=== PATIENT | male | born 1955 | race Caucasian/White ===

== ENCOUNTER → 2018-11-11 | Outpatient (CLI) | payer OTHER | LOC: SUPIMAGING 10:48 → MERGE 10:48 | PROVIDERS: ATTEND Family Medicine | DX: L03.031 Cellulitis of right toe (principal); S91.209A Unspecified open wound of unspecified toe(s) with damage to nail, initial encounter | CPT/HCPCS: 73660-PN ==

== ENCOUNTER → 2019-01-04 | Outpatient (CLI) | payer OTHER | LOC: SUPIMAGING 10:06 | PROVIDERS: ATTEND Family Medicine | DX: Z89.421 Acquired absence of other right toe(s) (principal) | CPT/HCPCS: 73620-PN ==

== ENCOUNTER → 2019-02-08 | Outpatient (CLI) | payer OTHER | LOC: SUPIMAGING 16:45 | PROVIDERS: ATTEND Family Medicine | DX: M79.674 Pain in right toe(s) (principal); L03.90 Cellulitis, unspecified | CPT/HCPCS: 73660-PN ==

== ENCOUNTER 2019-02-14 18:03 | Inpatient (IN) | payer OTHER ==
--- NOTE | 2019-02-14 19:46 | EDPHY ---
General - History Smoking Status: Current every day smoker Time Seen by Provider: 02/14/19 18:29 Narrative: CLINICAL IMPRESSION: Open dislocation, right 2nd toe at PIP joint associated with right toe cellulitis, probable MRSA, possible early osteomyelitis ASSESSMENT/PLAN: 63-year-old male with past medical history of COPD, CHF, MRSA, morbid obesity, presents to the emergency department with a worsening open wound to the right 2nd toe after injuring the toe a couple weeks ago. Patient with recent amputation of the right 3rd toe secondary to osteomyelitis. No reported history of diabetes. He does however have chronic peripheral neuropathy. X- ray show a probable chronic PIP joint dislocation although this appears to have become open over the course of the last couple weeks with losing and discharge from the wound and visible bone. There is swelling to the dorsum of the toes and MTP joints of the 1st and 2nd toes. No leukocytosis, normal lactate, vital stable, afebrile. No radiologic findings to suggest osteomyelitis although I am concerned about patient's risk of developing this. In addition, patient's wound continued to worsen despite being on an outpatient course of clindamycin following amputation less than 3 months ago. Patient will be admitted to the hospitalist service, I discussed with Dr. Dave who will plan to take the patient to the operating room tomorrow for amputation of the right 2nd toe. He was seen by Dr. Mcbride as well. Stable in the ED at time of admission. DIFFERENTIAL DX: Differential includes but not limited to cellulitis, MRSA, osteomyelitis, open dislocation ED PROCEDURES: See lab and/or imaging results below ED COURSE: X-rays reviewed with Dr. Faust. Patient appears to have a dislocated PIP joint. CHIEF COMPLAINT: Right 2nd toe pain HPI: 63-year-old morbidly obese male with past medical history of COPD, CHF, MRSA, presents to the emergency department with at least 1 week of right great toe pain associated with open wound. Patient reports approximately 3 months ago he underwent amputation of his right 3rd toe by Dr. Powers secondary to osteomyelitis. This was performed at [facility]. He reports having a positive culture for MRSA, was given vancomycin in the hospital and discharged on Bactrim. He unfortunately had a severe reaction to Bactrim describing hallucinations and paranoia. He was then switched to clindamycin. He reports approximately a week ago he "stubbed his right 2nd toe " and his reports that looked like "a rug burn on the toe. He continue taking clindamycin. He has been seeing wound care at his house and his primary care who has been "scrubbing the toe". He never had x-rays of the toe. He states despite this the appearance of the toe has progressively gotten worse. He has been completely off his feet for the last 4 days. He states he is just not feeling well, described low energy and nausea. No reported fevers but his reports he has been chilled. He reports no history of diabetes. He reports he is chronically a sensate to both of his feet and attributes this to bilateral arterial thrombus requiring stents. He reports he now has pain extending into the dorsum of the foot near the 2nd toe. PAST MEDICAL HISTORY: CHF, morbid obesity, COPD, history of arterial thromboses, history of MRSA See nurse/triage notes for additional history if applicable Pertinent Past Surgical History: Amputation of right 3rd toe 3 months ago secondary to osteomyelitis Family History: Noncontributory Social History: , here with his REVIEW OF SYSTEMS: All other systems negative Constitutional: No fever, positive for chills, appetite change. Cardiovascular: No chest pain, no palpitations. Respiratory: No cough, no shortness of breath. Gastrointestinal: No abdominal pain, positive for nausea, no vomiting, diarrhea. Musculoskeletal: No back pain, positive joint swelling, positive for joint pain , myalgias. Skin: No rashes, positive for color change to the right 2nd toe Neurological: No headache, dizziness, weakness. PHYSICAL EXAM: General Appearance: Alert, oriented, appropriate, morbidly obese cooperative, NAD, well hydrated, non-toxic appearing, VSS, 89-90% on room air. Respiratory: There are no retractions, lungs are clear to auscultation. Cardiac: Regular rate and rhythm, no murmurs or gallops. Gastrointestinal: Abdomen is soft, nontender, bowel sounds normal, no masses/ hernia, no rigidity, guarding or focal peritoneal findings. Neurological: [ Alert and oriented x 3. Very little sensation to both feet Skin: Ulcerative, open, oozing wound to the dorsum of the right 2nd toe over the PIP joint with visible bone present. Musculoskeletal: [Recent amputation of right 3rd toe. Normal range of motion of remaining toes right foot. See skin findings above. Pain to palpation of the MCP joint of the right 2nd toe. Psychiatric: Patient is oriented X 3 MEDICAL DECISION MAKING: Secondary supervising physician at time of evaluation was Dr. Mcbride, who also saw and examined the patient. Diagnosis: Open dislocation PIP joint of right 2nd toe associated with cellulitis and possible early osteomyelitis . New, requires workup Summary: See Assessment and Plan for summary of ED visit Clinical lab tests: ordered / reviewed. Independent visualization of images, tracing, or specimens: Yes. Decision to obtain medical records or history from someone other than the patient: Patient's white Discussed patient with another provider: Dr. Mcbride, Dr. Dave, Dr. Bethea, Dr. Felipe Patient Progress: Stable for admission. (Ashok Abreu) Medical Decision Making: I did evaluate this patient myself. He appears to have open dislocation of several months. Obvious infection. Attempt was made reduction however because of contractures it is immediately dislocated again. I recommended admission and likely amputation. (Alexander Mcbride) - Objective Vital Signs: Initial Vital Signs Temperature (C) 36.8 C 02/14/19 18:07 Heart Rate 71 02/14/19 18:07 Respiratory Rate 16 02/14/19 18:07 Blood Pressure 122/86 H 02/14/19 18:07 O2 Sat (%) 89 L 02/14/19 18:07 O2 Delivery Mode Nasal Cannula O2 (L/minute) 2 Allergies/Adverse Reactions: bacitracin [From Triple Antibiotic] Allergy (Verified 02/14/19 18:11) neomycin [From Triple Antibiotic] Allergy (Verified 02/14/19 18:11) Penicillins Allergy (Verified 02/14/19 18:11) polymyxin B [From Triple Antibiotic] Allergy (Verified 02/14/19 18:11) sulfamethoxazole [From Bactrim] Allergy (Verified 02/14/19 21:20) trimethoprim [From Bactrim] Allergy (Verified 02/14/19 21:20) Home Medications: Medication Instructions Recorded Albuterol Sulfate [Proair Hfa] 1 - 2 puffs IH Q4-6PRN PRN 02/14/19 Atorvastatin Calcium [Lipitor 20 20 mg PO HS 02/14/19 mg (*)] Carvedilol 12.5 mg PO BID 02/14/19 FLUoxetine HCL [Fluoxetine HCl] 40 mg PO BID 02/14/19 Fluticasone/Salmeter 500/50Mcg 1 puffs IH BID 02/14/19 [Advair 500/50 (*)] Furosemide [Lasix 40 MG (*)] 40 mg PO DAILY@11 02/14/19 Furosemide [Lasix 40 MG (*)] 80 mg PO DAILY@0530 02/14/19 Hydrocodone/Acetaminophen 1 each PO Q4HRS PRN 02/14/19 [Hydrocodon-Acetaminophn 10-325] Levothyroxine [Synthroid 50 mcg 50 mcg PO DAILY06 02/14/19 (*)] Pregabalin [Lyrica 150mg (*)] 150 mg PO BID 02/14/19 Rivaroxaban [Xarelto] 20 mg PO DAILY 02/14/19 Tamsulosin HCl [Flomax 0.4 MG (*)] 0.4 mg PO HS 02/14/19 rOPINIRole HCL [Ropinirole HCl] 3 mg PO HS 02/14/19 Laboratory Results: Laboratory Results 02/14/19 19:30 02/14/19 19:30 Microbiology Results: MICROBIOLOGY 02/14/19 19:30 Toe - Anaerobic Tube/Swab Gram Stain - Final Medications Given: Hydrocodone Bitart/Acetaminophen ([place] 5/325) 1 - 2 tab PO Q4HRS PRN PRN Reason: Pain, Moderate Able to Take PO Stop: 02/24/19 22:47 Last Admin: 02/14/19 23:06 Dose: 2 tab Albuterol (Proventil Neb) 3 ml IH Q2HRS PRN PRN Reason: Short of Breath/Dyspnea Stop: 08/14/19 03:16 Last Admin: 02/15/19 09:25 Dose: 3 ml Carvedilol (Coreg) 12.5 mg PO BID [facility] Stop: 08/14/19 08:59 Last Admin: 02/15/19 12:00 Dose: 12.5 mg Fluoxetine HCl (Prozac) 40 mg PO BID [facility] Stop: 08/14/19 08:59 Last Admin: 02/15/19 11:59 Dose: 40 mg Furosemide (Lasix) 40 mg PO DAILY@11 [facility] Stop: 08/14/19 10:59 Last Admin: 02/15/19 12:00 Dose: 40 mg Furosemide (Lasix) 80 mg PO DAILY@0530 [facility] Stop: 08/14/19 05:29 Last Admin: 02/15/19 06:11 Dose: Not Given Vancomycin HCl 1.25 gm/ Sodium (Chloride) 250 mls @ 166.667 mls/hr IV Q8HRS [facility] Stop: 03/17/19 05:59 Last Admin: 02/15/19 13:16 Dose: 250 mls Levothyroxine Sodium (Synthroid) 50 mcg PO DAILY06 [facility] Stop: 08/14/19 05:59 Last Admin: 02/15/19 06:11 Dose: Not Given Morphine Sulfate (Morphine) 1 - 2 mg IVP Q2HRS PRN PRN Reason: Pain, Severe Unable to Take PO Stop: 02/24/19 22:47 Last Admin: 02/15/19 02:27 Dose: 2 mg Pregabalin (Lyrica) 150 mg PO BID [facility] Stop: 08/14/19 01:29 Last Admin: 02/15/19 12:00 Dose: 150 mg Ropinirole HCl (Requip) 3 mg PO HS [facility] Stop: 08/14/19 01:44 Last Admin: 02/15/19 01:48 Dose: 3 mg Fluticasone/Salmeterol (Advair) 1 puffs IH BID [facility] Stop: 08/14/19 08:59 Last Admin: 02/15/19 10:06 Dose: Not Given Tamsulosin HCl (Flomax) 0.4 mg PO HS [facility] Stop: 08/14/19 01:29 Last Admin: 02/15/19 01:49 Dose: 0.4 mg Discontinued Medications Bupivacaine HCl (Sensorcaine 0.5% Vial) Confirm Administered Dose 30 ml .ROUTE .STK-MED ONE Stop: 02/15/19 08:35 Last Admin: 02/15/19 10:25 Dose: 20 ml Vancomycin HCl 1.5 gm/ Sodium (Chloride) 250 mls @ 166.667 mls/hr IV EDNOW ONE Stop: 02/14/19 23:14 Last Admin: 02/14/19 21:32 Dose: 250 mls Sodium Chloride (Ns) 1,000 mls @ 75 mls/hr IV CONT [facility] Stop: 08/13/19 22:59 Last Admin: 02/14/19 23:06 Dose: 1,000 mls Lactated Ringer's (Lr) 1,000 mls @ 0 mls/hr IV ONCE ONE PRN Reason: Per Protocol Stop: 02/15/19 08:52 Last Admin: 02/15/19 09:25 Dose: 1,000 mls Departure - Departure Disposition: [facility] Inpatient Acute Condition: Fair
[2019-02-14 20:00] LABS: PLATELET COUNT 359 10^3/uL (150-400)
[2019-02-14] MEDS ORDERED: VANCOMYCIN HCL/NORMAL SALINE 250 ML IV ONE (21:03)
[2019-02-14] MEDS ORDERED: VANCOMYCIN 1.5 GM in NS 250 ML IV ONE (21:45)
[2019-02-14] MEDS ORDERED: ONDANSETRON 4 MG/2 ML VIAL IVP PRN (22:48)
[2019-02-14] MEDS ORDERED: HYDROCODONE/APAP 5/325 TAB PO PRN (22:48)
[2019-02-14] MEDS ORDERED: ONDANSETRON DISINTEGRATING 4 MG TAB PO PRN (22:48)
[2019-02-14] MEDS ORDERED: ACETAMINOPHEN 325 MG TAB PO PRN (22:48)
[2019-02-14] MEDS ORDERED: NS 1,000 ML IV SCH (23:00)
[2019-02-15] MEDS: TAMSULOSIN HCL 0.4 MG CAP PO SCH ×2 (01:49→20:32)
[2019-02-15] MEDS: PREGABALIN 150 MG CAP PO SCH ×3 (01:49→20:32)
[2019-02-15] MEDS ORDERED: ALBUTEROL 3 ML DEYVIAL IH PRN ×2 (03:17→09:55)
--- NOTE | 2019-02-15 04:44 | GHP ---
[f rep st] HISTORY AND PHYSICAL DATE OF ADMISSION: 02/14/2019 SOURCE: Patient provides history, appears reliable. EMR was reviewed and case discussed with ED provider. CHIEF COMPLAINT: Right foot and toe pain. HISTORY OF PRESENT ILLNESS: This is a very pleasant 63-year-old gentleman with a past medical history significant for COPD; CHF; history of MRSA infected 3rd right toe wound, status post amputation; peripheral neuropathy; peripheral arterial disease, status post bilateral lower extremity bypasses; morbid obesity with BMI of 46; who presents to the emergency department today with complaints of right 2nd toe pain and open wound. Patient reports that this has been going on for greater than a month. He reports that he stubbed his toe and injured it, hitting the top of his toe, causing a slight abrasion. Patient notes that he has peripheral neuropathy and did not observe any worsening until recently except his socks have been wet. His home health care nurse evaluated his postoperative wound from amputation the right foot several months ago and noted that he had significant worsening in the right toe wound, which also appeared to have bone exposure. She recommended that the patient go to the emergency department for evaluation. Patient states over the weekend that he had been experiencing some fevers and chills subjectively, but no nausea or vomiting, chest pain, shortness of breath worse than baseline. REVIEW OF SYSTEMS: Ten systems reviewed, negative except as noted above. ALLERGIES: To penicillin, neomycin, polymyxin, bacitracin. HOME MEDICATIONS: Please see EMR for updated list, but briefly what is available: Fluoxetine, levothyroxine, atorvastatin, tamsulosin, furosemide twice daily, ProAir, carvedilol, [place], Advair, ropinirole, Lyrica, Xarelto. PAST MEDICAL HISTORY: Significant for COPD, with oxygen use at h.s.; peripheral neuropathy; CHF; MRSA; [place] not intolerant of CPAP; MRSA osteomyelitis in the right 3rd toe, status post a recent amputation; history of arterial thrombosis, status post bilateral lower extremity bypasses; morbid obesity with BMI of 46.9. PAST SURGICAL HISTORY: Significant for amputation of 3rd right toe, lower extremity arterial bypass as noted above. FAMILY HISTORY: Father with COPD. Grandmother with diabetes. SOCIAL HISTORY: Patient is , lives with his of greater than 30 years. He has 6 grandchildren. He does continue to smoke tobacco, recently started a year ago, 1.5 packs per week. He denies any alcohol use. He does smoke marijuana on a regular basis. CODE STATUS: Full. PHYSICAL EXAMINATION: VITAL SIGNS: Upon arrival to the emergency department: Blood pressure is 122/86, heart rate is 71, respiratory rate 16, O2 sat 89% on room air, with a temperature of 36.8. Current vitals available: Blood pressure is 134/89; heart rate is 73; respiratory rate 20. O2 sat: Last O2 sat 82% on room air, improved to 94% on 2 L. Temperature 36.6. GENERAL: No acute distress. Pleasant, morbidly obese gentleman who is lying comfortably in bed. He is awake, pleasant, and cooperative. HEAD: Normocephalic, atraumatic. EYES: Extraocular muscles are grossly intact. Pupils equal, round , symmetric. No scleral icterus or conjunctival injection. ENT: Mucous membranes appear moist. No oropharyngeal erythema. No nasal discharge. NECK: Supple. CV: Slightly distant heart sounds due to body habitus with regular rate and rhythm. Unable to appreciate any murmurs, rubs, or gallops. RESPIRATORY: Diminished bilaterally. No wheezes or rhonchi appreciated. ABDOMEN: Obese, soft, nontender to palpation. No rebound, guarding, or masses. Positive bowel sounds. : No suprapubic tenderness to palpation. No Ernner catheter in place. EXTREMITIES: Patient with chronic lower extremity skin changes. He has 1+ pedal pulses bilaterally. No lower extremity edema. SKIN: Chronic skin changes, lower extremities and above. Patient's right foot is bandaged. He has a slow healing surgical incision at the site of the 3rd toe. The 2nd toe has an approximately 1 cm circular wound over the PIP that is tender to palpation and had bone exposure. There is no purulent or serosanguineous drainage. NEURO: Grossly nonfocal. Patient does have sensation intact in the lower extremities, slightly diminished. Moves all extremities otherwise. PSYCH: Thought process, content, questions appropriate. Patient is pleasant and cooperative. LABORATORY STUDIES: WBC 8.29, H and H are 15.4 and 46.0, MCV of 88.8, platelet count 359, no bands. Lactic acid 1.3. Sodium is 135, potassium is 4.2, chloride 98, CO2 is 26, anion gap 11, BUN is 17, creatinine 0.9, GFR of greater than 60, glucose 110, calcium 9.1. Wound culture obtained from the emergency department on that toe is pending. Gram stain showing 1+ polymorphonuclear white cells, 2+ gram-positive cocci, and 1 gram-negative jack. IMAGING DATA: Foot x-ray, image report reviewed. Negative for any acute osseous erosion or fracture involving the right 2nd toe, equivocal dislocation at the level of PIP versus abnormal positioning in the foot. Amputated right 3rd toe, pronounced degenerative changes, loss of joint space in the 1st metatarsophalangeal articulation. ASSESSMENT AND PLAN: Pleasant 63-year-old gentleman with history of chronic obstructive pulmonary disease, congestive heart failure, methicillin-resistant Staphylococcus aureus, and a recent amputation in the last several months of the 3rd right toe for osteomyelitis, who sustained a mechanical injury to his right 2nd toe, now presents with complaints of worsening wound and drainage. 1. Right 2nd toe infection suspicious for osteomyelitis as there is exposure of bone, dislocation of the joint. Patient has been started on vancomycin for a history of methicillin-resistant Staphylococcus aureus previously. He has been made NPO. Dr. Dave with Orthopedics was consulted from the emergency department and will plan to evaluate and anticipate amputation of the 2nd great toe. Patient had some hesitations and concerns regarding additional amputation. We discussed with the patient that due to the injury and likelihood for osteomyelitis, he would be at increased risk for progressive infection and additional amputations. Patient without any objections with proceeding in surgery, but is just a little anxious as he just recently had an amputation. 2. Chronic medical issues: a. Chronic obstructive pulmonary disease without exacerbation. Some diminished lung sounds. Continue patient's Advair and albuterol as needed. b. History of congestive heart failure, not otherwise specified. Monitor patient's fluid status closely. Hold off on morning Lasix as patient will be nothing by mouth overnight. Saline lock is intravenously. c. Peripheral neuropathy. Continue Lyrica. d. Restless legs syndrome. Continue ropinirole. e. History of peripheral arterial disease, status post lower extremity bypass. Patient has been on Xarelto, which will be held. f. Morbid obesity. Mobilize postoperatively as tolerated. 3. Fluid, electrolyte, nutrition. Saline lock intravenously. Electrolytes adequate. Nothing by mouth after midnight. 4. Code status. Full. 5. Prophylaxis. Holding anticoagulation. No sequential compression devices in setting of history of peripheral arterial disease and current wound infection. 6. Disposition. Patient admitted to observation status on the med/surg floor pending additional evaluation and treatment by Dr. Dave tomorrow. /[id number]/MODL MTDD
[2019-02-15] MEDS: VANCOMYCIN 1.25 GM in NS 250 ML IV SCH ×3 (06:08→22:14)
[2019-02-15] MEDS: LEVOTHYROXINE 50 MCG TAB PO SCH (06:11)
[2019-02-15] MEDS: FUROSEMIDE 40 MG TAB PO SCH ×2 (06:11→12:00)
[2019-02-15 06:49] LABS: PLATELET COUNT 316 10^3/uL (150-400)
[2019-02-15] MEDS ORDERED: BUPIVACAINE 0.5% 30 ML SDV ONE (08:34)
--- NOTE | 2019-02-15 08:39 | GCON ---
[f rep st] CONSULTATION DATE OF CONSULTATION: 02/15/2019 REASON FOR CONSULTATION: Right 2nd toe traumatic wound. HISTORY OF PRESENT ILLNESS: 63-year-old man with multiple comorbidities, who presented to the emergency room complaining of right 2nd toe pain and open wound. He reports that he caught his toe in the bathroom, which led to a traumatic wound. This was over 1 month ago. He also had the same problem with his right 3rd toe which subsequently developed MRSA infection and required amputation 3 months ago. Of note, the right 3rd amputation site has not yet healed. He denies much pain in the area and has peripheral neuropathy. He has minimal drainage from the wounds. Over the weekend, he developed fevers and chills which ultimately led to presentation in the emergency room. He had a foot x-ray performed on 02/14/19, which showed no definite acute osseous erosion or fracture of the right 2nd toe, no evidence of osteomyelitis. 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 PAST SURGICAL HISTORY: Amputation, right 3rd toe; bilateral lower extremity fem -pop bypass, left in 2000, right in 2017. FAMILY HISTORY: Significant for father with COPD, grandmother with diabetes, son with DVT and PE. SOCIAL HISTORY: He is , has 6 grandchildren. He is a current smoker x40 years, currently smoking 1-1/2 packs per week. He denies alcohol use. He does use marijuana recreationally. REVIEW OF SYSTEMS: 10-point review of systems negative aside from the HPI. PHYSICAL EXAM: GENERAL: Obese man in no acute distress. HEENT: Normocephalic, atraumatic. No hearing deficits. Pupils equal and round. No scleral icterus. Mucous membranes moist. NECK: Trachea midline. RESPIRATORY: No increased work of breathing. CARDIOVASCULAR: 1+ peripheral edema, right lower extremity. No peripheral edema of left lower extremity Dopplerable. PT and DP pulses bilaterally. SKIN: The right 2nd toe has a wound at the interphalangeal joint with disarticulation and necrotic tendon in the base of the wound. There is minimal surrounding erythema. The area is nontender to palpation. He is status post right 3rd toe amputation with open wound at the amputation site. He has evidence of venous stasis. He has hemosiderin deposition bilaterally with varicose veins, well-healed bilateral lower extremity arterial bypass scars. The location of the open wound is the proximal interphalangeal joint with some tenderness to palpation. No purulence or active drainage. NEURO: Grossly intact. PSYCH: Mood and affect normal. IMPRESSION AND PLAN: 63-year-old man with multiple comorbidities and right 2nd toe open wound with disarticulation. We discussed right 2nd toe amputation for bone exposure and open dislocation. He is on therapeutic antibiotics. We discussed risks of surgery, including but not limited to heart attack, stroke, blood clots, or . We discussed risk of infection, bleeding, delayed wound healing, or need for additional procedures. He understands the risks and would like to proceed. He is on the schedule with Dr. Washington for 9:30 this morning for surgery. Consent form signed and in his chart. He had all of his questions answered to his satisfaction. Patient is a current smoker with peripheral arterial disease as well as history of DVTs - he understands that he has many barriers to healing, and smoking cessation was encouraged. Would be a good idea to re-image his LEs during this hospital admission with CTA to ensure patency of bypasses. Patient additionally seen by Dr. Melissa Washington. I saw and examined the patient. I reviewed his x ray. On his exam he has an open fracture dislocation and will require amputation. Multiple barriers to optimal healing including tobacco use, morbid obesity and blood supply /[id number]/MODL MTDD
[2019-02-15] MEDS ORDERED: LR 1,000 ML IV ONE (08:51)
[2019-02-15] MEDS ORDERED: PROPOFOL 200 MG/20 ML VIAL ONE ×2 (09:35→09:36)
[2019-02-15] MEDS ORDERED: METOCLOPRAMIDE 10 MG/2 ML VIAL ONE (09:38)
[2019-02-15] MEDS ORDERED: ONDANSETRON 4 MG/2 ML VIAL ONE (09:38)
[2019-02-15] MEDS ORDERED: LIDOCAINE 2% 5 ML SDV ONE (09:44)
[2019-02-15] MEDS ORDERED: KETAMINE 200 MG/20 ML VIAL ONE (09:45)
[2019-02-15] MEDS ORDERED: HYDROmorphONE/DILAUDID 1 MG/ML INJ IVP PRN (09:55)
[2019-02-15] MEDS ORDERED: oxyCODONE IR 5 MG TAB PO PRN (09:55)
[2019-02-15] MEDS ORDERED: ONDANSETRON 4 MG/2 ML VIAL IVP PRN (09:55)
[2019-02-15] MEDS ORDERED: NALOXONE HCL 0.4 MG/ML INJ IVP PRN (09:55)
[2019-02-15] MEDS ORDERED: PROMETHAZINE HCL 25 MG/ML INJ IVP PRN (09:55)
[2019-02-15] MEDS: FLUTICASONE/SALMETER 500/50MCG DISKUS IH SCH ×2 (10:06→20:29)
--- NOTE | 2019-02-15 10:22 | PDANEPAE ---
ANE History of Present Illness R toe Amputation ANE Past Medical History - Cardiovascular History Hx Hypertension: Yes Hx Chest Pain: Yes Hx Coronary Artery / Peripheral Vascular Disease: Yes Hx CHF / Valvular Disease: Yes - Pulmonary History Hx COPD: Yes Hx Asthma/Reactive Airway Disease: Yes Hx Oxygen in Use at Home: Yes O2 in Use at Home (L/minute): 2 L Hx Sleep Apnea: Yes Sleep Apnea Screening Result - Last Documented: Positive - Endocrine History Hx Diabetes: No Obesity: severe ANE Review of Systems Review of Systems: ANE Patient History - Allergies Allergies/Adverse Reactions: bacitracin [From Triple Antibiotic] Allergy (Verified 02/14/19 18:11) neomycin [From Triple Antibiotic] Allergy (Verified 02/14/19 18:11) Penicillins Allergy (Verified 02/14/19 18:11) polymyxin B [From Triple Antibiotic] Allergy (Verified 02/14/19 18:11) sulfamethoxazole [From Bactrim] Allergy (Verified 02/14/19 21:20) trimethoprim [From Bactrim] Allergy (Verified 02/14/19 21:20) - Home Medications Home Medications: Albuterol Sulfate [Proair Hfa] 1 - 2 puffs IH Q4-6PRN PRN 02/14/19 [Last Taken Unknown] Atorvastatin Calcium [Lipitor 20 mg (*)] 20 mg PO HS 02/14/19 [Last Taken ] Carvedilol 12.5 mg PO BID 02/14/19 [Last Taken 02/14/19] FLUoxetine HCL [Fluoxetine HCl] 40 mg PO BID 02/14/19 [Last Taken 02/14/19] Fluticasone/Salmeter 500/50Mcg [Advair 500/50 (*)] 1 puffs IH BID 02/14/19 [ Last Taken 02/14/19] Furosemide [Lasix 40 MG (*)] 40 mg PO DAILY@11 02/14/19 [Last Taken 02/14/19] Furosemide [Lasix 40 MG (*)] 80 mg PO DAILY@0530 02/14/19 [Last Taken 02/14/19] Hydrocodone/Acetaminophen [Hydrocodon-Acetaminophn 10-325] 1 each PO Q4HRS PRN 02/14/19 [Last Taken 02/14/19] Levothyroxine [Synthroid 50 mcg (*)] 50 mcg PO DAILY06 02/14/19 [Last Taken 04/28] Pregabalin [Lyrica 150mg (*)] 150 mg PO BID 02/14/19 [Last Taken 02/14/19] Rivaroxaban [Xarelto] 20 mg PO DAILY 02/14/19 [Last Taken 02/14/19] Tamsulosin HCl [Flomax 0.4 MG (*)] 0.4 mg PO HS 02/14/19 [Last Taken 02/13/19] rOPINIRole HCL [Ropinirole HCl] 3 mg PO HS 02/14/19 [Last Taken 02/13/19] - NPO status NPO Since - Liquids (Date): 02/15/19 NPO Since - Liquids (Time): 00:00 NPO Since - Solids (Date): 02/15/19 NPO Since - Solids (Time): 00:00 - Smoking Hx Smoking Status: Current every day smoker ANE Labs/Vital Signs - Labs Result Diagrams: 02/15/19 05:07 02/15/19 05:07 - Vital Signs Blood Pressure: 103/65 Heart Rate: 71 Respiratory Rate: 20 O2 Sat (%): 91 Height: 180.34 cm Weight: 152.4 kg ANE Physical Exam - Airway Neck exam: FROM, increased neck circumference, short neck Mallampati Score: Class 2 Mouth exam: small mouth opening - Pulmonary Pulmonary: expiratory wheeze - Cardiovascular Cardiovascular: regular rate and rhythym - ASA Status ASA Status: III ANE Anesthesia Plan Anesthesia Plan: GA w LMA
--- NOTE | 2019-02-15 11:35 | POSTANESTH ---
Post Anesthetic Evaluation Cardiovascular Status: Normal, Stable Respiratory Status: Normal, Stable Level of Consciousness/Mental Status: Can Participate in Eval Pain Control: Adequate, Prn Tx Ordered Nausea/Vomiting Control: Adequate, Prn Tx Ordered
[2019-02-15] MEDS: FLUoxetine 20 MG CAP PO SCH ×2 (11:59→20:32)
[2019-02-15] MEDS: CARVEDILOL 25 MG TAB PO SCH ×2 (12:00→20:30)
--- NOTE | 2019-02-15 13:33 | HOSPPROG ---
Hospitalist Progress Note Assessment/Plan: 63y male with toe infection. #Toe infection -to OR for amputation -ID consult #COPD -follow #Pain -try oxy #PAD -follow #HX CHF -stable #Morbid obesity #Dispo -unclear Subjective: Still having pain after surgery. Objective: Vital Signs Temp Pulse Resp BP Pulse Ox 36.7 C 72 22 H 112/69 96 02/15/19 12:38 02/15/19 12:38 02/15/19 12:38 02/15/19 12:38 02/15/19 12:38 Laboratory Results 02/15/19 05:07 02/15/19 05:07 02/14/19 02/15/19 02/16/19 05:59 05:59 05:59 Intake Total 55 740 Output Total 25 Balance 55 715 - Physical Exam Constitutional: chronically ill appearing, obese Eyes: PERRL, anicteric sclera Ears, Nose, Mouth, Throat: moist mucous membranes, hearing normal Cardiovascular: No JVD, No edema Respiratory: no respiratory distress Gastrointestinal: No distension Skin: warm Musculoskeletal: muscular tenderness, generalized weakness Psychiatric: not anxious ICD10 Worksheet Patient Problems: Problems Problem Status Onset Toe infection Acute - ICD10 Problem Qualifiers (1) Toe infection
[2019-02-15] MEDS: oxyCODONE IR 5 MG TAB PO PRN ×3 (13:52→22:14)
--- NOTE | 2019-02-15 14:59 | ASMTCMCOM ---
CM Note CM Note Notes: Pt admitted to hospital for toe infection, he has a hx of toe amputation. Pt was taken to OR for another amputation and had a wound vac placed. Pt and state he has a home health RN through [facility], CM called and they say he hasn't been seen since May. CM left a vm, KENNETH w/contiue to follow. No therapies ordered DC Plan:TBD Date Signed: 02/15/2019 02:58 PM Electronically Signed By:Maryam Marin RN
--- NOTE | 2019-02-15 19:17 | GCON ---
[f rep st] CONSULTATION INFECTIOUS DISEASE CONSULTATION DATE OF CONSULTATION: 02/15/2019 REFERRING PHYSICIAN: Lorenza Waddell MD REASON FOR CONSULTATION: Right foot infection with history of MRSA. HISTORY OF PRESENT ILLNESS: The patient is a 63-year-old male with a past medical history of COPD, p eripheral neuropathy, and peripheral vascular disease, whom I am asked to see in consultation for a r ight second toe infection. The patient developed an MRSA infection of the right third toe approximat raven 3 months ago, which required amputation at [facility]. The patient has had difficul ty with the amputation site healing. The patient describes receiving a course of Bactrim with which "He felt like he was on acid," ultimately resulting in a fall. During the course of the fall, he scr aped the skin on the dorsal surface of the second toe. This subsequently progressed to a necrotic wo und, with open dislocation being present. He describes having redness developed over the toe and nitin darlyn aspect of the foot. Review of outpatient record shows receipt of both doxycycline and clindamyci n. The patient was seen by his home health nurse with findings showing exposed bone prompting recomm endation for evaluation in the emergency department. He does describe having some chills, but no fev ers. He does feel like the dorsal aspect of his foot was edematous with erythema. Plain films of th e foot did not show changes of osteomyelitis, but showed evidence of a dislocation at the PIP joint w ith an overlying open wound. Earlier today, he was taken for amputation of the second toe. This was reviewed with Surgical Service and no notation of significant cellulitis being present. The patient has been treated empirically with vancomycin. Given the above findings, I am now asked to assist in his ongoing management. PAST MEDICAL HISTORY: COPD, peripheral neuropathy, peripheral vascular disease, congestive heart ariana lure, MRSA skin and soft tissue infection of the third toe requiring amputation, obstructive sleep ap crisetl, recurrent DVT with hypercoagulable state, and morbid obesity. PAST SURGICAL HISTORY: Amputation of right third toe as outlined above, amputation of right second t oe today; bilateral lower extremity arterial bypass surgery; he describes that his right-sided bypass surgery was complicated by a staph infection requiring 8 weeks of antibiotic therapy under the super [facility] of [facility]. He did not require prolonged suppressive antibiotic therapy. CURRENT MEDICATIONS: Vancomycin 1.25 g IV q.8 h., Advair 1 puff twice daily, Flomax 0.4 mg p.o. at b edtime, Requip 3 mg p.o. at bedtime, Lyrica 150 mg p.o. twice daily, Synthroid 50 mcg p.o. daily, Las ix 80 mg p.o. q.a.m. and 40 mg p.o. q.p.m., Prozac 40 mg p.o. twice daily, Coreg 12.5 mg p.o. twice d aily, and Lipitor 20 mg p.o. at bedtime. ALLERGIES: Sulfonamides associated with psychosis, penicillin associated with hives, but has tolerat ed cephalosporins. SOCIAL HISTORY: The patient continues to smoke 2 packs per week. No alcohol or drug use. FAMILY HISTORY: Son with hypercoagulable state. REVIEW OF SYSTEMS: Outside that noted in the HPI, remainder of a 10-system review is unremarkable ex cept for peripheral neuropathy. PHYSICAL EXAMINATION: VITAL SIGNS: Temperature 36.3, heart rate 68, respiratory rate 18, blood pres sure 113/68, and oxygen saturation 94% on 3 L. GENERAL: The patient is morbidly obese in no acute d istress. He appears nontoxic. HEENT: There is no scleral icterus, conjunctival injection, or conju nctival petechiae. Oropharynx shows moist mucous membranes. No nasal discharge. NECK: Supple with out palpable lymphadenopathy or thyromegaly. CHEST: Clear to auscultation bilaterally without adven titious sounds other than occasional expiratory wheeze. Respiratory effort is normal. CARDIOVASCULA R: Regular rate and rhythm without murmurs, gallops, or rubs. ABDOMEN: Obese, nontender, and nondi stended. Assessment of organomegaly precluded by obesity. MUSCULOSKELETAL: Right foot has a wound VAC in place. There is no surrounding cellulitis. There is 2+ lower extremity edema bilaterally. S KIN: There is mild intertrigo in the inguinal regions bilaterally. There are changes of venous kia is dermatitis in the right lower extremity with hemosiderin deposition. NEUROLOGIC: The patient is alert and interacts appropriately with the examiner. Cranial nerves 2 through 12 are grossly intact. Sensation is decreased in the lower extremities. Muscle tone and bulk are normal. LYMPHATICS: No cervical or supraclavicular nodes. No right-sided lymphangitis in the thigh. LABORATORY DATA: White blood cell count 7.9, hematocrit 43.3, platelets 316, and neutrophils 74%. S stephie creatinine is 0.8. Venous lactate 1.3. Gram stain of the patient's ulceration shows 1+ white b lood cells, 2+ GPCs, and 1+ gram-negative rods with growth of mixed cutaneous stacey. Operative Gram stain shows no white blood cells and no organisms. Vancomycin trough is pending for later this eveni ng. IMPRESSION: Right second toe nonhealing ulceration with exposed bone, status post amputation: Abdi ntly, there are no findings of skin and soft tissue infection, although presence of wound vacuum-assi sted closure device limits full examination. Suspect we will be able to utilize a short duration of vancomycin with possible discontinuation tomorrow as amputation should be curative. He has a vancomy agnes trough pending for later this evening as he is receiving greater than 3 g per 24 hours based on h is body habitus. Do not anticipate that the patient will need prolonged antibiotic therapy post ampu tation. RECOMMENDATIONS: 1. Continue vancomycin with repeat assessment tomorrow and probable discontinuation of antibiotic th erapy at that point in time. 2. Followup cultures as available. 3. Local wound care under supervision of Surgery. 4. Counseled the patient regarding importance of smoking cessation as this will impair wound healing and contribute to ongoing peripheral arterial disease. Thank you for this consultation. We will continue to follow the patient with you. /[id number]/MODL
--- NOTE | 2019-02-15 20:12 | GOP ---
[f rep st] OPERATIVE REPORT DATE OF OPERATION: 02/15/2019 SURGEON: Melissa Washington MD ANESTHESIA: General. ANESTHESIOLOGIST: Dr. Kyaw Lovelace. PREOPERATIVE DIAGNOSIS: Right 2nd toe wound with bone and tendon exposed. POSTOPERATIVE DIAGNOSIS: Right 2nd toe wound with bone and tendon exposed. PROCEDURE PERFORMED: 1. Amputation, right 2nd toe. 2. Debridement of surgical site, right 3rd toe. 3. Placement of Prevena wound VAC. FINDINGS: Bone and tendon exposed through wound of obvious dislocated toe. SPECIMENS: Right toe for pathology. Right metatarsal head ink medley proximal. Right toe for microbiology. ESTIMATED BLOOD LOSS: 10 cc. INDICATIONS: The patient is a 63-year-old who underwent amputation of the 3rd toe with delayed wound healing and developed a wound on the second toe with dislocation and bone and tendon exposed. DESCRIPTION OF PROCEDURE: Patient was brought into the operating room, placed supine on the table, and anesthesia was administered. His foot was prepped and draped in the usual sterile fashion. I infiltrated the area with 0.5% Marcaine prior to making incisions. I made an incision around the base of the toe extending onto the dorsum of the foot. I removed the second toe with a microsagittal saw and submitted this to Pathology. I used a periosteal elevator to elevate the soft tissues away from the bone. I took the remaining portion of the second toe and submitted this to Microbiology. I exposed the metatarsal head and amputated the distal portion of the second metatarsal head. This was inked proximally, and submitted to Pathology. Hemostasis was achieved in the wound. The deep layer was closed with 3-0 Vicryl, skin closed with 2-0 nylon. I then debrided the base of the wound of the 3rd toe to healthy bleeding granulation tissue. I then closed this with 2-0 nylon. I placed a Prevena wound VAC over the 2 incisions. He was awakened in the operating room, transferred to PACU in stable condition. /[id number]/MODL MTDD
[2019-02-15] MEDS: ATORVASTATIN CALCIUM 20 MG TAB PO SCH (20:33)
--- NOTE | 2019-02-15 22:27 | GCON ---
[f rep st] CONSULTATION DATE OF CONSULTATION: 02/15/2019 REASON FOR CONSULTATION: Right 2nd toe. HISTORY OF PRESENT ILLNESS: The patient is a 63-year-old with a history of multiple medical problems , who has increasing 2nd toe pain and swelling. He had recently undergone a 3rd toe amputation on his opposite foot. PHYSICAL EXAMINATION: He has some diffuse swelling in his foot. The 2nd toe is flexed at the IP join t and extended at the MP joint. There is skin breakdown at the dorsal aspect of the IP joint. There i s clinical evidence of infection. ASSESSMENT: Right 2nd toe infection. PLAN: Based on the appearance of the toe and the poor likelihood of wound healing capability, it was recommended that 2nd toe amputation be pursued. This was scheduled for amputation. /[id number]/MODL
[2019-02-16] MEDS: oxyCODONE IR 5 MG TAB PO PRN ×5 (02:15→20:27)
[2019-02-16] MEDS: VANCOMYCIN 1.25 GM in NS 250 ML IV SCH (06:13)
[2019-02-16] MEDS: FUROSEMIDE 40 MG TAB PO SCH ×2 (06:13→10:47)
[2019-02-16] MEDS: LEVOTHYROXINE 50 MCG TAB PO SCH (06:14)
[2019-02-16] MEDS: FLUoxetine 20 MG CAP PO SCH ×2 (08:13→20:27)
[2019-02-16] MEDS: PREGABALIN 150 MG CAP PO SCH ×2 (08:13→20:27)
[2019-02-16] MEDS: CARVEDILOL 25 MG TAB PO SCH ×2 (08:13→20:26)
[2019-02-16] MEDS: FLUTICASONE/SALMETER 500/50MCG DISKUS IH SCH ×2 (08:35→20:25)
--- NOTE | 2019-02-16 09:02 | SOAPPROG ---
SOAP Progress Note Assessment/Plan: Assessment: POD # 1 s/p amputation R second toe and debridement 3rd toe Prevena wound vac. Remove when battery dies or at 1 week - whichever comes sooner. The wound is closed under the incisional wound vac Smoking cessation Walking cast shoe or cam boot walker - may ambulate but not prolonged F/U Dr. Washington in 1 week Path and micro pending DC when medically ready S: Pain at foot O: Pleasant, sitting in chair, appears well Prevena to suction - noisy (likely due to difficult seal between toes) No erythema Plan: 02/16/19 08:59 Objective: Vital Signs Temp Pulse Resp BP Pulse Ox 36.5 C 74 18 118/73 93 02/16/19 07:36 02/16/19 08:36 02/16/19 08:36 02/16/19 07:36 02/16/19 08:36 Microbiology 02/15/19 10:05 Gram Stain - Final Other - Other Laboratory Results 02/15/19 05:07 02/16/19 04:40 02/15/19 02/16/19 02/17/19 05:59 05:59 05:59 Intake Total 55 1989 Output Total 0127 400 Balance 55 65 -400 ICD10 Worksheet Patient Problems: Problems Problem Status Onset Toe infection Acute
--- NOTE | 2019-02-16 12:05 | HOSPPROG ---
Hospitalist Progress Note Assessment/Plan: Patient is a 63-year-old male patient with a history of COPD, CHF, MRSA and recent amputation of his 3rd right toe for osteomyelitis. He sustained a mechanical injury to his right 2nd toe. He presented with complaints of worsening wound and drainage. Today is my 1st encounter. Chart reviewed. * right 2nd toe infection -status post amputation -has been on vancomycin, this will be likely discontinued since the toe infection has been removed -wound VAC * COPD -continue Advair and albuterol as needed * history of CHF * peripheral neuropathy -on Lyrica * restless leg syndrome -on ropinirole * history of peripheral artery disease status post lower extremity bypass -Xarelto (will resume when ok w surgery) * morbid obesity with a BMI of 46 *plan: likely dc in the next day or so w wound vac and home care. Subjective: Chandrakant is having some pain to his right foot area. Objective: Vital Signs Temp Pulse Resp BP Pulse Ox 36.5 C 74 18 118/73 93 02/16/19 07:36 02/16/19 08:36 02/16/19 08:36 02/16/19 07:36 02/16/19 08:36 Microbiology 02/15/19 10:05 Gram Stain - Final Other - Other Laboratory Results 02/15/19 05:07 02/16/19 04:40 02/15/19 02/16/19 02/17/19 05:59 05:59 05:59 Intake Total 55 1989 Output Total 6983 400 Balance 55 65 -400 - Physical Exam Constitutional: chronically ill appearing, obese, uncomfortable Eyes: PERRL Ears, Nose, Mouth, Throat: hearing normal Cardiovascular: regular rate and rhythym, other (distant heart tones) Respiratory: no respiratory distress, reduced air movement Skin: warm, other (wound vac in place on r foot) Neurologic: AAOx3 Psychiatric: interacting appropriately, not anxious ICD10 Worksheet Patient Problems: Problems Problem Status Onset Toe infection Acute
--- NOTE | 2019-02-16 14:06 | PCMIDPN ---
Assessment/Plan: Assessment/Plan: * Right 2nd toe infection with open dislocation status post amputation: Surgical findings reviewed with Dr. Washington with no findings of skin and soft tissue infection over foot at time of amputation. Amputation should be curative without need for ongoing antibiotic therapy. Will therefore discontinue vancomycin observe off antibiotics. Discussed with patient that antibiotics will not improve wound healing in the absence of ongoing infection. Wound healing will be critical to prevent recurrent infection and failure to heal wound could lead to limb threatening process/infection. * Intertrigo: Start nystatin powder. 02/16/19 14:03 Subjective: Patient without specific complaints. Operative findings reviewed with Dr. Washington today. Objective: Vital Signs Temp Pulse Resp BP Pulse Ox 36.8 C 72 18 106/73 94 02/16/19 13:16 02/16/19 13:16 02/16/19 13:16 02/16/19 13:16 02/16/19 13:16 Microbiology 02/15/19 10:05 Gram Stain - Final Other - Other Laboratory Results 02/15/19 05:07 02/16/19 04:40 02/15/19 02/16/19 02/17/19 05:59 05:59 05:59 Intake Total 55 1989 Output Total 1925 650 Balance 55 65 -650 Wound and operative culture both with growth of Staphylococcus aureus Laboratory Tests 02/15/19 21:35 Vancomycin Trough 15.0 - Physical Exam General Appearance: alert, no apparent distress Extremities: inflammation (Right foot with wound VAC in place; no cellulitis present outside VAC margins) Abdomen: non-tender, No distended Skin: rash (Mild intertrigo bilateral inguinal region) ICD10 Worksheet Patient Problems: Problems Problem Status Onset Toe infection Acute
[2019-02-16] MEDS: NYSTATIN POWDER 15 GM BTL TP SCH ×2 (16:09→20:24)
--- NOTE | 2019-02-16 18:28 | PDMN ---
Medical Necessity Medical necessity: Change to inpt as of 02/16/19, meets inpt criteria per MD order and [facility], Foot: Surgical Wound Care, A-2 days, Surgery performed is expected to require inpatient level of nursing, monitoring, treatment, or wound care beyond 24 hours postoperatively. 63 y/o w/hx COPD (uses home O2), periph neuropathy, CHF, MRSA, tobacco use, and morbid obesity admitted w/R 2nd toe infection suspicious for osteomyelitis w/exposure of bone and tendon and dislocation of joint. Surgical and ortho consults, pt underwent amputation of R 2nd toe, debridement, and wound vac placement. ID consult today, est LOS>2MN for ongoing eval/management of above.
[2019-02-16] MEDS: ATORVASTATIN CALCIUM 20 MG TAB PO SCH (20:27)
[2019-02-16] MEDS: TAMSULOSIN HCL 0.4 MG CAP PO SCH (20:27)
[2019-02-17] MEDS: oxyCODONE IR 5 MG TAB PO PRN ×6 (01:26→22:49)
[2019-02-17] MEDS: LEVOTHYROXINE 50 MCG TAB PO SCH (05:29)
[2019-02-17] MEDS: FUROSEMIDE 40 MG TAB PO SCH ×2 (05:29→10:57)
[2019-02-17] MEDS: FLUTICASONE/SALMETER 500/50MCG DISKUS IH SCH ×2 (09:32→20:51)
[2019-02-17] MEDS: FLUoxetine 20 MG CAP PO SCH ×2 (09:38→22:35)
[2019-02-17] MEDS: CARVEDILOL 25 MG TAB PO SCH ×2 (09:39→22:34)
[2019-02-17] MEDS: PREGABALIN 150 MG CAP PO SCH ×2 (09:40→22:34)
--- NOTE | 2019-02-17 10:12 | HOSPPROG ---
Hospitalist Progress Note Assessment/Plan: Patient is a 63-year-old male patient with a history of COPD, CHF, MRSA and recent amputation of his 3rd right toe for osteomyelitis. He sustained a mechanical injury to his right 2nd toe. He presented with complaints of worsening wound and drainage. * right 2nd toe infection -status post amputation -has been on vancomycin -wound VAC * COPD -continue Advair and albuterol as needed * history of CHF -on Lasix * peripheral neuropathy -on Lyrica * restless leg syndrome -on ropinirole * history of peripheral artery disease status post lower extremity bypass -Xarelto (will resume) * morbid obesity with a BMI of 46 *plan: likely dc soon w wound vac Subjective: Chandrakant is having pain to his right big toe- onoging for years. Objective: Vital Signs Temp Pulse Resp BP Pulse Ox 36.9 C 75 16 113/66 95 02/17/19 08:43 02/17/19 09:32 02/17/19 09:32 02/17/19 08:43 02/17/19 09:32 02/16/19 02/17/19 02/18/19 05:59 05:59 05:59 Intake Total 1800 Output Total 1400 500 Balance 400 -500 - Physical Exam Constitutional: appears nourished, chronically ill appearing, obese, uncomfortable Eyes: PERRL Ears, Nose, Mouth, Throat: hearing normal Respiratory: no respiratory distress, reduced air movement (due to his obesity) Skin: warm Musculoskeletal: generalized weakness Neurologic: AAOx3 Psychiatric: interacting appropriately ICD10 Worksheet Patient Problems: Problems Problem Status Onset Toe infection Acute
--- NOTE | 2019-02-17 10:27 | PDIAF ---
- Diagnosis Diagnosis: right second toe infection s/p amputation, morbid obestiy, PVD, PAD Code Status: Full Code - Medication Management Discharge Medications: electronically signed and located in the Home Medication List. - Orders Services needed: Home Care, Registered Nurse Home Care Face to Face: I certify that this patient was under my care and that I had the required [id number] encounter meeting the encounter requirements on the discharge day. My findings support the fact that the patient is homebound as defined in Home Care Face to Face Continued: CMS Chapter 7 Medicare Benefits Manual 30.1.1 , The condition of the patient is such that there exists a normal inability to leave home and consequently, leaving home would require a considerable and taxing effort. Isolation Type: Contact Isolation Diet Recommendation: no restrictions on diet Diet Texture: Regular Texture Diet Additional Instructions: Do not immerse foot in water or shower as long as incisional wound dressing is in place Remove dressing if no longer holding suction, battery dies or on 02/21 ( whichever comes first). This is a fancy bandaid. Everything is disposable and can go in regular trash. After removal can place antibiotic ointment like neosporin and gauze and tape over wound Walking and weight bearing okay but no prolonged distances make a follow up with Dr. Washington or her PA Stephanie Sandoval for 02/20 or 02/21 A prescription for Oxy IR was sent to the pharmacy here in the hospital-they will bring you your medications. Do not take [place] in addition try Scheduled Tylenol 1000 mg tid scheduled to help with your pain A home care nurse will see you - Follow Up Care Current Providers and Referrals: Dora Newberry DO [Primary Care Provider] - As per Instructions Melissa Washington MD [Medical Doctor] - (call to make an appointment. We would like to see you either 02/20 or 02/21)
--- NOTE | 2019-02-17 10:34 | ASMTCMCOM ---
CM Note CM Note Notes: Pt being discharged to home today with [facility] RN services. Has disposable wound vac in place. Per Stephanie Sandoval PA-C with Dr. Washington, okay to go home with it on. He will follow up with Dr. Washington in her office. Pt's will be driving him home. LM for her to advise that he is being discharged today. Date Signed: 02/17/2019 10:33 AM Electronically Signed By:Ute Park
--- NOTE | 2019-02-17 10:35 | ASMTLACE ---
LACE Length of stay for Answers: 1 day current admission Acuity / Level of Answers: Yes Care: Did the patient have an inpatient admission? Comorbidities - select Answers: Chronic pulmonary disease all that apply Congestive heart failure Other Notes: Hx of MRSA; Peripheral neuropathy # of Emergency department Answers: 1-2 visits in the last 6 months Score: 10 Date Signed: 02/17/2019 10:34 AM Electronically Signed By:Ute Park
--- NOTE | 2019-02-17 10:52 | GDS ---
[f rep st] DISCHARGE SUMMARY DISCHARGE DIAGNOSIS: 1. Right 2nd toe infection, status post amputation. 2. Chronic obstructive pulmonary disease. 3. History of congestive heart failure. 4. Peripheral neuropathy. 5. Restless leg syndrome. 6. History of peripheral artery disease, status post lower extremity bypass. 7. Morbid obesity with a body mass index of 46. CONSULTATION: Stephanie Sandoval, [facility], with surgical team, Dr. Faust, Dr. Dave. HISTORY AND HOSPITAL COURSE: Briefly, this patient is a 63-year-old male with a past medical history significant for COPD, CHF, history of MRSA infection of his 3rd right toe status post amputation, pe ripheral neuropathy, peripheral artery disease, morbid obesity with a body mass index of 46, presente d to the ER with complaints of right 2nd toe pain and open wound. This has been ongoing for greater than a month. There was concern for osteomyelitis. He was seen and evaluated by Dr. Faust and Dr. Peters. The recommendation was for amputation, which has been since removed. He will be discharged ho md with home care following up. HOSPITAL COURSE: 1. Right 2nd toe infection, status post amputation, was treated with vancomycin. He will be on a wo und VAC. 2. COPD. Continue Advair and albuterol as needed. 3. History of CHF, on Lasix. 4. Peripheral neuropathy, on Lyrica. 5. Restless leg syndrome on ropinirole. 6. History of PAD status post lower extremity bypass, resumed his Xarelto. 7. Morbid obesity. He has a BMI of 46. DISCHARGE CONDITION: Stable. Blood pressure is 113/66, O2 sats on 3 L are 95%. Heart rate is 75, r espiratory rate of 16, temperature 36.9. MEDICATION AT DISCHARGE: Please see the EMR. DISCHARGE INSTRUCTIONS: 1. Do not immerse his foot in water or shower as long as incisional wound dressing is in place. He will have a wound VAC. Once it looses it suction or the battery dies, he can dispose and go in the r egular trash. He can walk and weight bear as tolerated, but no prolonged distances. 2. Follow up with Dr. Washington or Stephanie Sandoval, [facility]. 3. A prescription for Oxy IR was sent to the pharmacy here in the hospital. Do not take the [place] i n addition to this. Greater than 30 minutes discharging and coordinating care. Copy requested to: Dr. Felix Faust /[id number]/MODL
[2019-02-17] MEDS: ACETAMINOPHEN 500 MG TAB PO SCH ×3 (10:56→22:33)
[2019-02-17] MEDS: NYSTATIN POWDER 15 GM BTL TP SCH ×2 (10:58→22:38)
[2019-02-17] MEDS: RIVAROXABAN 20 MG TAB PO SCH (11:39)
--- NOTE | 2019-02-17 12:39 | ASMTCMCOM ---
CM Note CM Note Notes: UPDATE TO PREVIOUS CM NOTE: Dr. Washington does not want pt to go home today. She says he has not gotten out of bed once since being here and is not an active participant in his wound care. CM notified . Also notified [facility] that he is not being discharged today afterall. CM will continue to follow. CM D/C plan: Eventually home with HC Date Signed: 02/17/2019 12:38 PM Electronically Signed By:Ute Park
--- NOTE | 2019-02-17 13:23 | SOAPPROG ---
SOAP Progress Note Assessment/Plan: Assessment/Plan: 63yo M with multiple comorbidities POD#2 s/p amputation R 2nd toe Prevena incisional wound vac not functioning well - removed and replaced with silver mepilex Ambulate with post-op shoe PT/OT SANDRA this morning decreased flow to RLE. Will order CTA with runoff Pain controlled Additionally seen by Dr. Washington S: patient has not gotten up out of bed since yesterday - cast shoe still in package. Has not worked with PT. Pain of R 4th and 5th toes improved since dressing removed O: laying in bed, NAD, obese No increased WOB B feet warm to the touch RLE amp site with small amount of dusky tissues, incisions CDI. No erythema. Objective: Vital Signs Temp Pulse Resp BP Pulse Ox 36.8 C 72 16 109/65 92 02/17/19 11:33 02/17/19 11:33 02/17/19 11:33 02/17/19 11:33 02/17/19 11:33 02/16/19 02/17/19 02/18/19 05:59 05:59 05:59 Intake Total 1800 Output Total 1400 900 Balance 400 -900 ICD10 Worksheet Patient Problems: Problems Problem Status Onset Toe infection Acute
--- NOTE | 2019-02-17 13:53 | PCMIDPN ---
Assessment/Plan: Assessment: 63-year-old man with right 2nd toe cellulitis with underlying osteomyelitis, amputation provided source control will continue to monitor off antibiotics. 1. Right 2nd toe cellulitis with possible underlying osteomyelitis, resolved with amputation 2. Status post right 2nd toe amputation on 02/15/2019 3. Peripheral neuropathy 4. Morbid obesity Plan: 1. Continue to monitor off antibiotics 2. Wound care as an outpatient Infectious Diseases remains available should the need arise Darci Feng MD Infectious Diseases 02/17/19 13:55 Subjective: No fever or chills in the past 24-hours. Tolerating oral diet with solids and liquids. No diarrhea, nausea, or other GI symptoms. No rash. Appetite improving. Amputation site at right 2nd toe remains painful but tolerable. Improved since admission but not back to baseline health. Objective: Vital Signs Temp Pulse Resp BP Pulse Ox 36.8 C 72 16 109/65 92 02/17/19 11:33 02/17/19 11:33 02/17/19 11:33 02/17/19 11:33 02/17/19 11:33 02/16/19 02/17/19 02/18/19 05:59 05:59 05:59 Intake Total 1800 Output Total 1400 1100 Balance 400 -1100 Discussed treatment/diagnostic testing and testing results with admitting provider(s). Personally reviewed interval laboratory results. - Physical Exam General Appearance: no apparent distress, non-toxic EENT: No scleral icterus Respiratory: No respiratory distress, No accessory muscle use Neck: full range of motion, supple Skin: other (Right foot with wound VAC in place over amputation site encompassing the 2nd toe area, no erythema surrounding wound VAC edges, no induration, no fluctuance areas) Neuro/Psych: alert, normal mood/affect, oriented x 3, No confused ICD10 Worksheet Patient Problems: Problems Problem Status Onset Toe infection Acute
[2019-02-17] MEDS ORDERED: IOPAMIDOL (ISOVUE 370) 100 ML BTL IV ONE (13:58)
--- NOTE | 2019-02-17 17:59 | SOAPPROG ---
SOAP Progress Note Assessment/Plan: Assessment: SANDRA .49 with poor wave form on right CTA with profunda reconstituting Discussed with dr العلي and patient. Will need new bypass as old bypass is out Had bypass on left in 2000 Had bypass on right more recently At risk of poor wound healing due to blood supply obesity smoking (recently quit) Walking better with cast shoe Plan: 02/16/19 08:59 02/17/19 17:57 Objective: Vital Signs Temp Pulse Resp BP Pulse Ox 36.8 C 79 16 116/86 H 92 02/17/19 11:33 02/17/19 15:59 02/17/19 15:59 02/17/19 15:59 02/17/19 15:59 02/16/19 02/17/19 02/18/19 05:59 05:59 05:59 Intake Total 1800 Output Total 1400 1350 Balance 400 -1350 ICD10 Worksheet Patient Problems: Problems Problem Status Onset Toe infection Acute
[2019-02-17] MEDS: ATORVASTATIN CALCIUM 20 MG TAB PO SCH (22:33)
[2019-02-17] MEDS: TAMSULOSIN HCL 0.4 MG CAP PO SCH (22:34)
[2019-02-18] MEDS: FUROSEMIDE 40 MG TAB PO SCH ×2 (05:03→12:39)
[2019-02-18] MEDS: LEVOTHYROXINE 50 MCG TAB PO SCH (05:03)
[2019-02-18] MEDS: ACETAMINOPHEN 500 MG TAB PO SCH (05:55)
--- NOTE | 2019-02-18 08:55 | SOAPPROG ---
SOAP Progress Note Assessment/Plan: Assessment: PATIENT SLEEPING IS SOLIDLY AND UNABLE TO AROUSE AFEBRILE CTA SHOWS OCCLUDED RIGHT SFA BUT OPEN DISTAL POPLITEAL ARTERY WOUNDS NOT EVALUATED YET TODAY Plan: CONSIDER EVALUATION FOR FEM-POP BYPASS FOR LIMB SALVAGE/I WILL DISCUSS THIS WITH HIM LATER WHEN HE IS MORE AWAKE 02/18/19 08:54 Objective: Vital Signs Temp Pulse Resp BP Pulse Ox 36.7 C 74 14 112/60 92 02/18/19 07:36 02/18/19 07:36 02/18/19 07:36 02/18/19 07:36 02/18/19 07:36 02/17/19 02/18/19 02/19/19 05:59 05:59 05:59 Intake Total 1800 650 Output Total 1400 2100 1500 Balance 400 -1450 -1500 ICD10 Worksheet Patient Problems: Problems Problem Status Onset Toe infection Acute
[2019-02-18] MEDS: FLUTICASONE/SALMETER 500/50MCG DISKUS IH SCH ×2 (09:10→20:49)
[2019-02-18] MEDS: PREGABALIN 150 MG CAP PO SCH ×2 (09:33→20:22)
[2019-02-18] MEDS: RIVAROXABAN 20 MG TAB PO SCH (09:33)
[2019-02-18] MEDS: FLUoxetine 20 MG CAP PO SCH ×2 (09:34→20:22)
[2019-02-18] MEDS: CARVEDILOL 25 MG TAB PO SCH ×2 (09:34→20:22)
[2019-02-18] MEDS: NYSTATIN POWDER 15 GM BTL TP SCH ×2 (09:35→21:39)
[2019-02-18] MEDS ORDERED: ACETAMINOPHEN 500 MG TAB PO PRN (11:08)
--- NOTE | 2019-02-18 14:32 | ASMTCMCOM ---
CM Note CM Note Notes: CM reviewed chart. Per Dr. Miles, he will discuss possibility of doing femoral-popliteal bypass to try to salvage pt's limb. Pt is on [facility]'s list for homecare when he discharges, if still appropriate at that time. CM will continue to follow. CM D/C plan: TBD Date Signed: 02/18/2019 02:32 PM Electronically Signed By:Ute Park
--- NOTE | 2019-02-18 15:09 | HOSPPROG ---
Hospitalist Progress Note Assessment/Plan: * MRSA Osteomyelitis of toe s/p amputation -no further antibiotics as surgical cure -wound care * PVD - d/w Dr. Miles - patient needs re-do of LE bypass surgery * Morbid obesity BMI 47 * Peripheral neuropathy -Lyrica * h/o arterial thrombosis -Xarelto * COPD with ongoing tobacco abuse -Advair -intermittent compliance with home O2 * MORENA - CPAP intolerant Subjective: no new complaints Objective: Vital Signs Temp Pulse Resp BP Pulse Ox 36.6 C 69 14 100/46 L 95 02/18/19 11:34 02/18/19 11:34 02/18/19 11:34 02/18/19 11:34 02/18/19 11:34 02/17/19 02/18/19 02/19/19 05:59 05:59 05:59 Intake Total 1800 650 Output Total 1400 2100 1500 Balance 400 -1450 -1500 CTA aorta with runoff reviewed - needs arterial revision case discussed with Dr. Villegas regarding need for OR Laboratory Tests 02/14/19 02/15/19 19:30 05:07 WBC 7.89 Hct 43.3 Plt Count 316 VBG Lactic Acid 1.3 - Physical Exam Constitutional: no apparent distress, appears nourished, not in pain Cardiovascular: regular rate and rhythym, no murmur, rub, or gallop Respiratory: no respiratory distress, no rales or rhonchi, clear to auscultation Gastrointestinal: normoactive bowel sounds, soft, non-tender abdomen, no palpable masses Skin: other (foot amputation bed kelsea, dry, undressed) Neurologic: AAOx3, sensation intact bilaterally Psychiatric: interacting appropriately, not anxious, not encephalopathic, thought process linear ICD10 Worksheet Patient Problems: Problems Problem Status Onset Toe infection Acute
[2019-02-18] MEDS: ATORVASTATIN CALCIUM 20 MG TAB PO SCH (20:22)
[2019-02-18] MEDS: TAMSULOSIN HCL 0.4 MG CAP PO SCH (20:22)
[2019-02-18] MEDS: oxyCODONE IR 5 MG TAB PO PRN (21:38)
[2019-02-19] MEDS: LEVOTHYROXINE 50 MCG TAB PO SCH (04:42)
[2019-02-19] MEDS: FUROSEMIDE 40 MG TAB PO SCH (04:43)
[2019-02-19] MEDS: PREGABALIN 150 MG CAP PO SCH ×2 (07:52→21:46)
[2019-02-19] MEDS: RIVAROXABAN 20 MG TAB PO SCH (07:52)
[2019-02-19] MEDS: FLUoxetine 20 MG CAP PO SCH ×2 (07:52→21:47)
[2019-02-19] MEDS: NYSTATIN POWDER 15 GM BTL TP SCH ×2 (07:59→21:51)
[2019-02-19] MEDS: FLUTICASONE/SALMETER 500/50MCG DISKUS IH SCH ×2 (08:57→21:39)
[2019-02-19] MEDS ORDERED: FUROSEMIDE 40 MG/4 ML VIAL IVP ONE (09:44)
[2019-02-19] MEDS: CARVEDILOL 25 MG TAB PO SCH ×2 (10:33→21:47)
--- NOTE | 2019-02-19 11:26 | ECHO ---
[email or web address] [address] [address] Main: [phone] Echocardiography Examination Transthoracic Name: GAIL RASCON MR#: [id number] Study Date: 02/19/2019 Study Time: 10:52 AM Date of : 1955 Age: 63 year(s) Height: 180.3 cm (71 in.) Weight: 151.96 kg (335 lb.) BSA: 2.63 m2 Gender: Male Examination: Echo Contrast: Image Quality: Technically Difficult Rhythm: Normal sinus rhythm Heart Rate: 68 bpm BP: 105 mmHg/59 mmHg Indication: CHF Procedure Staff Referring Physician: Forensics Team Director: Adali Parson RDCS Reading Physician: Greg Eagle MD Requesting Provider: Ordering Physician: Linda Darden Indication: CHF Measurements Chambers AV/MV Label Value Normal Value Label Value Normal Value LVOT Vmax 0.82 m/s (0.7m/s - 1.1m/s) AR Vena contracta 0.4 cm LVOTd 2.4 cm (1.9cm - 2.1cm) AV PGmax 10 mmHg LVDd, 2D 4.6 cm (4.2cm - 5.9cm) AV Vmax 1.59 m/s LVDs, 2D 3 cm (2.1cm - 4cm) MARK (Vmax) 2.3 cm2 IVSd, 2D 1 cm (0.6cm - 1.1cm) MV E Vmax 0.65 m/s LVPWd, 2D 1.2 cm (0.6cm - 1cm) MV A Vmax 0.74 m/s LVEF, 2D 58 % (54% - 74%) MV E/A 0.88 LADs, 2D 3.9 cm (3cm - 4cm) MV DT 201 ms Additional Vessels TV/PV Label Value Normal Value Label Value Normal Value AoAsc 3.3 cm PV PGmax 5 mmHg AoRoot, 2D 3.5 cm (1.4cm - 2.6cm) PV Vmax, Caliper 1.16 m/s (0.6m/s - 0.9m/s) Conclusions Left Ventricle: CONCLUSIONS:1)Technically limited echo secondary to body habitus.2)Normal LV size and systolic function with a LVEF of 58%.3)Borderline concentric LVH with mild diastolic dysfunction noted.4)Mild to moderate AI without noted.5)Mild TR noted. Unable to accurately assess PA pressures.6)Promient pericardial fat pad with no pericardial Patient: GAIL RASCON Study Date: 02/19/2019 Page 1 of 2 10:52 AM effusion or tamponade signs. Findings Left Ventricle: Left ventricle is normal in size. CONCLUSIONS: 1)Technically limited echo secondary to body habitus. 2)Normal LV size and systolic function with a LVEF of 58%. 3)Borderline concentric LVH with mild diastolic dysfunction noted. 4)Mild to moderate AI without noted. 5)Mild TR noted. Unable to accurately assess PA pressures. 6)Promient pericardial fat pad with no pericardial effusion or tamponade signs. EF evaluated by fractional shortening (2D). The LV wall thickness is at the upper limits of normal. Although no diagnostic regional wall motion abnormality was identified, this possibility cannot be completely excluded on the basis of this study. Grade I Diastolic Dysfunction. Borderline concentric LV hypertrophy. Right Ventricle: Grossly normal right ventricular size. The RV function appears grossly normal. Left Atrium: The left atrium is grossly normal. Right Atrium: Grossly normal right atrial size. Mitral Valve: Mitral valve is poorly visualized. No significant mitral regurgitation. No mitral valve stenosis. Aortic Valve: Aortic valve is poorly visualized. Mild to moderate aortic regurgitation is present. There is no aortic stenosis. Tricuspid Valve: Tricuspid valve is poorly visualized. Mild tricuspid regurgitation. No tricuspid valve stenosis. Pulmonary artery pressure cannot be assessed due to inadequate TR signal. Pulmonic Valve: Pulmonic valve is poorly visualized. Aorta: The aortic root size in 2D measures 3.5 cm. The aortic root exhibits normal size. The ascending aorta measures 3.3 cm. Aorta Measurements AoRoot, 2D is 3.5 cm. IVC: The inferior vena cava is normal in size and course. Pericardium: No pericardial effusion. prominent pericardial fat pad. Exam Details Procedure Ordered: Echo Procedure Status: Routine study Image Quality: Technically Difficult Facility Location: Cardiac Echo 1 (No Signature Object) Patient: GAIL RASCON Study Date: 02/19/2019 Page 2 of 2 10:52 AM [id number]
--- NOTE | 2019-02-19 13:13 | HOSPPROG ---
Hospitalist Progress Note Assessment/Plan: * MRSA Osteomyelitis of toe s/p amputation -no further antibiotics as surgical cure -wound care - unclear if wound vac to be replaced * PVD - patient needs re-do of LE bypass surgery -await plan per Dr. Miles * Morbid obesity BMI 47 * Peripheral neuropathy -Lyrica * h/o arterial thrombosis -Xarelto * COPD with ongoing tobacco abuse -Advair -intermittent compliance with home O2 * MORENA - CPAP intolerant * Acute on chronic diastolic CHF -IV lasix today Subjective: Want to discharge and wait on surgery. Anxious to spend time with his grandkids. Denies CP/SOB. Hypoxic and hypotensive overnight. Objective: Vital Signs Temp Pulse Resp BP Pulse Ox 36.7 C 67 18 106/59 L 95 02/19/19 07:18 02/19/19 07:18 02/19/19 07:18 02/19/19 07:18 02/19/19 07:18 02/18/19 02/19/19 02/20/19 05:59 05:59 05:59 Intake Total 650 500 Output Total 2100 3225 Balance -1450 -2725 ECHO - diastolic CHF Laboratory Tests 02/19/19 10:45 Troponin I < 0.012 NT-Pro-B Natriuret Pep 360 H CXR viewed, my personal interpretation is - mild CHF - Physical Exam Constitutional: no apparent distress, appears nourished, not in pain Cardiovascular: regular rate and rhythym, no murmur, rub, or gallop Respiratory: no respiratory distress, no rales or rhonchi, clear to auscultation Gastrointestinal: normoactive bowel sounds, soft, non-tender abdomen, no palpable masses Skin: no rashes or abrasions, no fluctuance, no induration Neurologic: AAOx3, sensation intact bilaterally Psychiatric: interacting appropriately, not anxious, not encephalopathic, thought process linear ICD10 Worksheet Patient Problems: Problems Problem Status Onset Toe infection Acute
--- NOTE | 2019-02-19 13:30 | SOAPPROG ---
SOAP Progress Note Assessment/Plan: Assessment: PATIENT SLEEPING IS SOLIDLY AND UNABLE TO AROUSE AFEBRILE CTA SHOWS OCCLUDED RIGHT SFA BUT OPEN DISTAL POPLITEAL ARTERY WOUNDS NOT EVALUATED YET TODAY Plan: CONSIDER EVALUATION FOR FEM-POP BYPASS FOR LIMB SALVAGE/I WILL DISCUSS THIS WITH HIM LATER WHEN HE IS MORE AWAKE 02/18/19 08:54 02/19/19 13:29 MARGINAL HEALING/ NO DISTAL PULSES PALPABLE WILL NEED FEMPOP WILL ORDER ART STUDIES Objective: Vital Signs Temp Pulse Resp BP Pulse Ox 36.7 C 67 18 106/59 L 95 02/19/19 07:18 02/19/19 07:18 02/19/19 07:18 02/19/19 07:18 02/19/19 07:18 02/18/19 02/19/19 02/20/19 05:59 05:59 05:59 Intake Total 650 500 Output Total 9688 5420 Balance -6540 -5358 ICD10 Worksheet Patient Problems: Problems Problem Status Onset Toe infection Acute
[2019-02-19] MEDS: ATORVASTATIN CALCIUM 20 MG TAB PO SCH (21:46)
[2019-02-19] MEDS: TAMSULOSIN HCL 0.4 MG CAP PO SCH (21:47)
[2019-02-19] MEDS: oxyCODONE IR 5 MG TAB PO PRN (21:54)
[2019-02-19] MEDS ORDERED: diphenhydrAMINE 25 MG CAP PO PRN (23:34)
[2019-02-19] MEDS: MELATONIN 3 MG TAB PO SCH (23:40)
[2019-02-20] MEDS: FUROSEMIDE 40 MG TAB PO SCH ×2 (04:37→12:22)
[2019-02-20] MEDS: LEVOTHYROXINE 50 MCG TAB PO SCH (04:37)
[2019-02-20] MEDS: oxyCODONE IR 5 MG TAB PO PRN ×3 (04:38→21:25)
[2019-02-20] MEDS: FLUoxetine 20 MG CAP PO SCH ×2 (08:01→21:05)
[2019-02-20] MEDS: RIVAROXABAN 20 MG TAB PO SCH (08:01)
[2019-02-20] MEDS: PREGABALIN 150 MG CAP PO SCH ×2 (08:01→21:03)
[2019-02-20] MEDS: CARVEDILOL 25 MG TAB PO SCH ×2 (08:01→21:04)
[2019-02-20] MEDS: NYSTATIN POWDER 15 GM BTL TP SCH ×2 (09:32→21:09)
[2019-02-20] MEDS: FLUTICASONE/SALMETER 500/50MCG DISKUS IH SCH ×2 (09:41→21:10)
[2019-02-20] MEDS ORDERED: SODIUM CL NASAL 45 ML BTL EACHNARE PRN (15:29)
--- NOTE | 2019-02-20 15:33 | HOSPPROG ---
Hospitalist Progress Note Assessment/Plan: * MRSA Osteomyelitis of toe s/p amputation -no further antibiotics as surgical cure -wound care per surgery - no wound vac needed * PVD - patient needs re-do of LE bypass surgery -OR tomorrow * Morbid obesity BMI 47 * Peripheral neuropathy -Lyrica * h/o arterial thrombosis -holding Xarelto for surgery -consider bridge given h/o arterial clot * COPD with ongoing tobacco abuse -Advair -intermittent compliance with home O2 * MORENA - CPAP intolerant * Acute on chronic diastolic CHF -s/p IV lasix Subjective: No complaints, slept poorly Objective: Vital Signs Temp Pulse Resp BP Pulse Ox 36.8 C 73 16 123/76 H 94 02/20/19 07:42 02/20/19 07:42 02/20/19 07:42 02/20/19 07:42 02/20/19 07:42 Laboratory Results 02/20/19 04:33 02/19/19 02/20/19 02/21/19 05:59 05:59 05:59 Intake Total 500 600 Output Total 9227 0 Balance -3145 -1380 EKG viewed, my personal interpretation is - NSR, no ischemic change - Physical Exam Constitutional: no apparent distress, appears nourished, not in pain Cardiovascular: regular rate and rhythym, no murmur, rub, or gallop Respiratory: no respiratory distress, no rales or rhonchi, clear to auscultation Gastrointestinal: normoactive bowel sounds, soft, non-tender abdomen, no palpable masses Skin: no rashes or abrasions, no fluctuance, no induration Neurologic: AAOx3, sensation intact bilaterally Psychiatric: interacting appropriately, not anxious, not encephalopathic, thought process linear ICD10 Worksheet Patient Problems: Problems Problem Status Onset Toe infection Acute
--- NOTE | 2019-02-20 16:18 | ASMTCMCOM ---
CM Note CM Note Notes: Patient to OR tomorrow for a fem-pop bypass. PT/OT will follow post-op and make d/c recommendations. Case Management will follow. Date Signed: 02/20/2019 04:17 PM Electronically Signed By:Aniyah Talley RN
--- NOTE | 2019-02-20 16:20 | SOAPPROG ---
SOAP Progress Note Assessment/Plan: Assessment/Plan: 63yo M with multiple comorbidities POD#5 s/p amputation R 2nd toe Change gauze bandages daily or PRN Ambulate with post-op shoe PT/OT SANDRA Wednesday decreased flow to RLE. CTA with runoff occluded R SFA Pain controlled Will go tomorrow am to OR for R fem-pop bypass with Dr. Miles Additionally seen by Dr. Miles S: no complaints. understands risks benefits of surgery O: laying in bed, NAD, obese No increased WOB B feet warm to the touch RLE amp site incisions CDI. No erythema. Objective: Vital Signs Temp Pulse Resp BP Pulse Ox 36.9 C 69 16 120/64 92 02/20/19 16:00 02/20/19 16:00 02/20/19 16:00 02/20/19 16:00 02/20/19 16:00 Laboratory Results 02/20/19 04:33 02/19/19 02/20/19 02/21/19 05:59 05:59 05:59 Intake Total 500 600 Output Total 2182 6087 Balance -4120 -1705 ICD10 Worksheet Patient Problems: Problems Problem Status Onset Toe infection Acute
[2019-02-20] MEDS: FLUTICASONE NASAL 120 SPRAYS/16 GM MDI EACHNARE SCH (16:57)
[2019-02-20] MEDS: MELATONIN 3 MG TAB PO SCH (21:04)
[2019-02-20] MEDS: ATORVASTATIN CALCIUM 20 MG TAB PO SCH (21:04)
[2019-02-20] MEDS: TAMSULOSIN HCL 0.4 MG CAP PO SCH (21:04)
[2019-02-21] MEDS: FUROSEMIDE 40 MG TAB PO SCH ×2 (05:27→18:48)
[2019-02-21] MEDS: LEVOTHYROXINE 50 MCG TAB PO SCH (05:27)
[2019-02-21] MEDS: NYSTATIN POWDER 15 GM BTL TP SCH ×2 (07:51→23:58)
[2019-02-21] MEDS ORDERED: PROTAMINE SULFATE 50 MG/5 ML VIAL IVP ONE (08:01)
[2019-02-21] MEDS ORDERED: BUPIVACAINE 0.5% 30 ML SDV ONE ×2 (08:02→08:04)
[2019-02-21] MEDS ORDERED: PROPOFOL/EMULSION 500 MG/50 ML BOTTLE IV ONE ×2 (08:27→10:06)
[2019-02-21] MEDS ORDERED: PROPOFOL 200 MG/20 ML VIAL ONE (08:27)
[2019-02-21] MEDS ORDERED: LIDOCAINE 2% 2 ML INJ ONE ×3 (08:27→11:33)
[2019-02-21] MEDS ORDERED: BUPIVACAINE/DEXTROSE 7.5MG/ML 2 ML SPINAL AMP SP ONE (08:29)
[2019-02-21] MEDS ORDERED: VANCOMYCIN 2 GM in D5W 500 ML IV ONE (09:00)
[2019-02-21] MEDS ORDERED: LR 1,000 ML IV ONE (09:03)
--- NOTE | 2019-02-21 09:22 | SOAPPROG ---
LIZZY Progress Note Assessment/Plan: Assessment: PATIENT SLEEPING IS SOLIDLY AND UNABLE TO AROUSE AFEBRILE CTA SHOWS OCCLUDED RIGHT SFA BUT OPEN DISTAL POPLITEAL ARTERY WOUNDS NOT EVALUATED YET TODAY Plan: CONSIDER EVALUATION FOR FEM-POP BYPASS FOR LIMB SALVAGE/I WILL DISCUSS THIS WITH HIM LATER WHEN HE IS MORE AWAKE 02/18/19 08:54 02/19/19 13:29 MARGINAL HEALING/ NO DISTAL PULSES PALPABLE WILL NEED FEMPOP WILL ORDER ART STUDIES 02/21/19 09:20 ARCH STUDIES REVEAL FLAT TRACINGS AT THE ANKLE AND METATARSAL LEVELS NOT SUFFICIENT FOR WOUND HEALING AT THE TOE AMPUTATION LEVEL RISKS AND OPTIONS FULLY DISCUSSED HE WISHED TO PROCEED WITH FEM-POP BYPASS Objective: Vital Signs Temp Pulse Resp BP Pulse Ox 37.1 C 64 18 100/59 L 93 02/21/19 07:21 02/21/19 07:21 02/21/19 07:21 02/21/19 07:21 02/21/19 07:21 Microbiology 02/20/19 16:30 Respiratory Panel (PCR) - Final Nasal, Sinus - Bland Viral Transport No Organism Detected By Pcr Laboratory Results 02/20/19 04:33 02/20/19 02/21/19 02/22/19 05:59 05:59 05:59 Intake Total 600 450 Output Total 2049 650 Balance -1450 -200 ICD10 Worksheet Patient Problems: Problems Problem Status Onset Toe infection Acute
[2019-02-21] MEDS ORDERED: MIDAZOLAM 2 MG/2 ML VIAL IVP ONE (09:37)
[2019-02-21] MEDS ORDERED: THROMBIN (BOVINE) 20,000 UNIT VIAL TP ONE (09:40)
--- NOTE | 2019-02-21 09:41 | PDANEPAE ---
ANE Past Medical History - Cardiovascular History Hx Hypertension: Yes Hx Chest Pain: Yes Hx Coronary Artery / Peripheral Vascular Disease: Yes Hx CHF / Valvular Disease: Yes - Pulmonary History Hx COPD: Yes Hx Asthma/Reactive Airway Disease: Yes Hx Oxygen in Use at Home: Yes O2 in Use at Home (L/minute): 2 L Hx Sleep Apnea: No Sleep Apnea Screening Result - Last Documented: Positive - Endocrine History Hx Diabetes: No Obesity: severe ANE Review of Systems Review of Systems: ANE Patient History - Allergies Allergies/Adverse Reactions: bacitracin [From Triple Antibiotic] Allergy (Verified 02/14/19 18:11) neomycin [From Triple Antibiotic] Allergy (Verified 02/14/19 18:11) Penicillins Allergy (Verified 02/14/19 18:11) polymyxin B [From Triple Antibiotic] Allergy (Verified 02/14/19 18:11) sulfamethoxazole [From Bactrim] Allergy (Verified 02/14/19 21:20) trimethoprim [From Bactrim] Allergy (Verified 02/14/19 21:20) - Home Medications Home Medications: Albuterol Sulfate [Proair Hfa] 1 - 2 puffs IH Q4-6PRN PRN 02/14/19 [Last Taken Unknown] Atorvastatin Calcium [Lipitor 20 mg (*)] 20 mg PO HS 02/14/19 [Last Taken ] Carvedilol 12.5 mg PO BID 02/14/19 [Last Taken 02/14/19] FLUoxetine HCL [Fluoxetine HCl] 40 mg PO BID 02/14/19 [Last Taken 02/14/19] Fluticasone/Salmeter 500/50Mcg [Advair 500/50 (*)] 1 puffs IH BID 02/14/19 [ Last Taken 02/14/19] Furosemide [Lasix 40 MG (*)] 40 mg PO DAILY@11 02/14/19 [Last Taken 02/14/19] Furosemide [Lasix 40 MG (*)] 80 mg PO DAILY@0530 02/14/19 [Last Taken 02/14/19] Levothyroxine [Synthroid 50 mcg (*)] 50 mcg PO DAILY06 02/14/19 [Last Taken 04/28] Pregabalin [Lyrica 150mg (*)] 150 mg PO BID 02/14/19 [Last Taken 02/14/19] Rivaroxaban [Xarelto] 20 mg PO DAILY 02/14/19 [Last Taken 02/14/19] Tamsulosin HCl [Flomax 0.4 MG (*)] 0.4 mg PO HS 02/14/19 [Last Taken 02/13/19] rOPINIRole HCL [Ropinirole HCl] 3 mg PO HS 02/14/19 [Last Taken 02/13/19] - NPO status NPO Since - Liquids (Date): 02/21/19 NPO Since - Liquids (Time): 00:00 NPO Since - Solids (Date): 02/21/19 NPO Since - Solids (Time): 00:00 - Smoking Hx Smoking Status: Current every day smoker ANE Labs/Vital Signs - Labs Result Diagrams: 02/15/19 05:07 02/20/19 04:33 - Vital Signs Blood Pressure: 100/59 Heart Rate: 64 Respiratory Rate: 18 O2 Sat (%): 93 Height: 180.34 cm Weight: 152.4 kg ANE Physical Exam - Airway Neck exam: FROM Mallampati Score: Class 2 Mouth exam: normal dental/mouth exam - Pulmonary Pulmonary: no respiratory distress, no rales or rhonchi, clear to auscultation - Cardiovascular Cardiovascular: regular rate and rhythym, no murmur, rub, or gallop - ASA Status ASA Status: III ANE Anesthesia Plan Anesthesia Plan: spinal Total IV Anesthesia: Yes
--- NOTE | 2019-02-21 09:43 | POSTANESTH ---
Post Anesthetic Evaluation Cardiovascular Status: Normal, Stable Respiratory Status: Normal, Stable Level of Consciousness/Mental Status: Can Participate in Eval Pain Control: Adequate, Prn Tx Ordered Nausea/Vomiting Control: Adequate, Prn Tx Ordered Complications Possibly Related to Anesthesia: None Noted
[2019-02-21] MEDS: FLUTICASONE/SALMETER 500/50MCG DISKUS IH SCH ×2 (10:29→21:55)
[2019-02-21] MEDS ORDERED: fentaNYL 250 MCG/5 ML INJ ONE ×2 (11:08→12:23)
[2019-02-21] MEDS ORDERED: PROMETHAZINE HCL 25 MG/ML INJ IVP PRN (11:18)
[2019-02-21] MEDS ORDERED: oxyCODONE IR 5 MG TAB PO PRN (11:18)
[2019-02-21] MEDS ORDERED: ALBUTEROL 3 ML DEYVIAL IH PRN (11:18)
[2019-02-21] MEDS ORDERED: NALOXONE HCL 0.4 MG/ML INJ IVP PRN (11:18)
[2019-02-21] MEDS ORDERED: HYDROmorphONE/DILAUDID 1 MG/ML INJ IVP PRN ×2 (11:18→15:39)
[2019-02-21] MEDS ORDERED: METOCLOPRAMIDE 10 MG/2 ML VIAL IVP PRN (11:18)
[2019-02-21] MEDS ORDERED: PHENYLEPHRINE HCL 100 MCG/ML SYR IVP PRN (11:18)
[2019-02-21] MEDS ORDERED: fentaNYL 100 MCG/2 ML INJ IVP PRN (11:18)
[2019-02-21] MEDS ORDERED: MEPERIDINE 25 MG/0.5 ML AMP IVP PRN (11:18)
[2019-02-21] MEDS ORDERED: ACETAMINOPHEN 500 MG TAB PO PRN (11:18)
[2019-02-21] MEDS ORDERED: ROCURONIUM 50 MG/5 ML VIAL ONE ×4 (11:28→12:41)
[2019-02-21] MEDS ORDERED: ONDANSETRON 4 MG/2 ML VIAL ONE ×2 (11:33→15:11)
[2019-02-21] MEDS ORDERED: THROMBIN (BOVINE) 5,000 UNIT VIAL TP ONE (12:24)
[2019-02-21] MEDS ORDERED: ROCURONIUM 100 MG/10 ML VIAL ONE (13:08)
--- NOTE | 2019-02-21 13:11 | CPEKG ---
Test Reason : CHF Blood Pressure : / mmHG Vent. Rate : 069 BPM Atrial Rate : 070 BPM P-R Int : 165 ms QRS Dur : 093 ms QT Int : 420 ms P-R-T Axes : 071 032 060 degrees QTc Int : 450 ms Sinus rhythm Probable left atrial enlargement Confirmed by Jesús Phillips ([id number]) on 02/21/2019 1:10:48 PM Referred By: Joao Felipe Confirmed By:Jesús Phillips
[2019-02-21] MEDS ORDERED: HEPARIN 10,000 UNIT/10 ML MDV (1,000 UNIT/ML) ONE (13:16)
[2019-02-21] MEDS ORDERED: HEPARIN 50,000 UNIT/10 ML VIAL ONE (14:35)
[2019-02-21] MEDS ORDERED: SUGAMMADEX SODIUM 200 MG/2 ML VIAL IVP ONE (14:52)
[2019-02-21] MEDS ORDERED: fentaNYL 100 MCG/2 ML INJ ONE ×4 (15:11→15:18)
--- NOTE | 2019-02-21 15:17 | HOSPPROG ---
Hospitalist Progress Note Assessment/Plan: * MRSA Osteomyelitis of toe s/p amputation -no further antibiotics as surgical cure -wound care per surgery - no wound vac needed * PVD - patient needs re-do of LE bypass surgery -OR today * Morbid obesity BMI 47 * Peripheral neuropathy -Lyrica * h/o arterial thrombosis -holding Xarelto for surgery -consider bridge given h/o arterial clot * COPD with ongoing tobacco abuse -Advair -intermittent compliance with home O2 * MORENA - CPAP intolerant * Acute on chronic diastolic CHF -s/p IV lasix Subjective: patient seen briefly in pre op area, no complaints Objective: Vital Signs Temp Pulse Resp BP Pulse Ox 37.1 C 64 18 100/59 L 93 02/21/19 07:21 02/21/19 09:41 02/21/19 09:41 02/21/19 09:41 02/21/19 09:41 Microbiology 02/20/19 16:30 Respiratory Panel (PCR) - Final Nasal, Sinus - [place]once Viral Transport No Organism Detected By Pcr Laboratory Results 02/20/19 04:33 02/20/19 02/21/19 02/22/19 05:59 05:59 05:59 Intake Total 600 450 Output Total 2049 650 350 Balance -1450 -200 -350 awake alert rrr no mrg cta b soft nt nd ICD10 Worksheet Patient Problems: Problems Problem Status Onset Toe infection Acute
--- NOTE | 2019-02-21 15:43 | POSTOPPROG ---
Post Op Note Date of Operation: 02/21/19 Surgeon: Corey Miles Partition Notcher: Jyoti Sanchez Anesthesiologist: Alexander Patten Anesthesia: GET(General Endotracheal) Pre-op Diagnosis: PAD, prior failed bypass graft Post-op Diagnosis: same, also possible femoral a. dissection Indication: 63 Y M nonhealing toe amp and PAD. Procedure: below knee fem pop bypass with impra graft, femoral a. endarterectomy Findings: much scarring. challenging surgery. palpable DP pulse post bypass. Inf/Abcess present in the surg proc area at time of surgery?: No EBL: 50-100 Bowel Protocol: N/A Clean Closure Performed: N/A Specimen(s): femoral a. contents to pathology
--- NOTE | 2019-02-21 16:51 | ASMTCMCOM ---
CM Note CM Note Notes: Pt went for a fempop bypass today. CM spoke to Modesta kumar/ [facility] . Pt is current w/ [facility]. CM sent updates to them on allscripts. Therapies have cleared him at this time but may change after surgery. CM to follow. Date Signed: 02/21/2019 04:49 PM Electronically Signed By:YULI Almodovar
[2019-02-21] MEDS: FLUoxetine 20 MG CAP PO SCH ×2 (17:29→20:12)
[2019-02-21] MEDS: FLUTICASONE NASAL 120 SPRAYS/16 GM MDI EACHNARE SCH (17:29)
[2019-02-21] MEDS: CARVEDILOL 25 MG TAB PO SCH ×2 (17:29→20:14)
[2019-02-21] MEDS: PREGABALIN 150 MG CAP PO SCH ×2 (17:29→20:12)
--- NOTE | 2019-02-21 19:20 | SOAPPROG ---
SOAP Progress Note Assessment/Plan: Assessment: PATIENT SLEEPING IS SOLIDLY AND UNABLE TO AROUSE AFEBRILE CTA SHOWS OCCLUDED RIGHT SFA BUT OPEN DISTAL POPLITEAL ARTERY WOUNDS NOT EVALUATED YET TODAY Plan: CONSIDER EVALUATION FOR FEM-POP BYPASS FOR LIMB SALVAGE/I WILL DISCUSS THIS WITH HIM LATER WHEN HE IS MORE AWAKE 02/18/19 08:54 02/19/19 13:29 MARGINAL HEALING/ NO DISTAL PULSES PALPABLE WILL NEED FEMPOP WILL ORDER ART STUDIES 02/21/19 09:20 ARCH STUDIES REVEAL FLAT TRACINGS AT THE ANKLE AND METATARSAL LEVELS NOT SUFFICIENT FOR WOUND HEALING AT THE TOE AMPUTATION LEVEL RISKS AND OPTIONS FULLY DISCUSSED HE WISHED TO PROCEED WITH FEM-POP BYPASS 02/21/19 19:20 POSTOP DOING WELL WITH GOOD PULSES/DRESSINGS DRY AND INTACT/MINIMAL PAIN/ AFEBRILE Objective: Vital Signs Temp Pulse Resp BP Pulse Ox 36.9 C 82 20 118/73 98 02/21/19 18:52 02/21/19 18:52 02/21/19 18:52 02/21/19 18:52 02/21/19 18:52 Microbiology 02/20/19 16:30 Respiratory Panel (PCR) - Final Nasal, Sinus - Power Viral Transport No Organism Detected By Pcr Laboratory Results 02/20/19 04:33 02/20/19 02/21/19 02/22/19 05:59 05:59 05:59 Intake Total 144 550 8228 Output Total 2049 650 525 Balance -1450 -200 825 ICD10 Worksheet Patient Problems: Problems Problem Status Onset Toe infection Acute
[2019-02-21] MEDS: MELATONIN 3 MG TAB PO SCH (20:12)
[2019-02-21] MEDS: TAMSULOSIN HCL 0.4 MG CAP PO SCH (20:13)
[2019-02-21] MEDS: ATORVASTATIN CALCIUM 20 MG TAB PO SCH (20:13)
[2019-02-21] MEDS: oxyCODONE IR 5 MG TAB PO PRN (20:13)
[2019-02-22] MEDS: oxyCODONE IR 5 MG TAB PO PRN ×7 (01:30→21:49)
[2019-02-22] MEDS: LEVOTHYROXINE 50 MCG TAB PO SCH (05:02)
[2019-02-22] MEDS: FUROSEMIDE 40 MG TAB PO SCH ×2 (05:02→11:33)
--- NOTE | 2019-02-22 08:47 | SOAPPROG ---
LIZZY Progress Note Assessment/Plan: Assessment/Plan:63yo M with multiple comorbidities POD#7 s/p amputation R 2nd toe, POD#1 s/p challenging redo below knee fem pop bypass c impra graft. R foot is warm with palpable pedal pulses. Restart Xarelto tomorrow. OOB today, PT/OT. No severe bending at hip or knee. Ok to sit semireclined. [place] can come out today. Pain control. Suspect he will have a good deal of R posterior knee pain. Discussed importance of tobacco cessation. Patient says he is motivated for the sake of his grandchildren. Also seen by Dr. Miles early this morning. S: has been on bedrest. "sore." O: alert, nad no wob rrr abd soft obese nt inc's well dressed without shadowing. foot warm, palpable dp pulse. toe amp site dressed 02/22/19 08:43 Objective: Vital Signs Temp Pulse Resp BP Pulse Ox 36.6 C 81 24 H 99/67 L 93 02/22/19 07:45 02/22/19 07:45 02/22/19 07:45 02/22/19 07:45 02/22/19 07:45 Laboratory Results 02/22/19 04:27 02/22/19 04:27 02/21/19 02/22/19 02/23/19 05:59 05:59 05:59 Intake Total 450 1350 Output Total 474 1125 Balance -200 225 ICD10 Worksheet Patient Problems: Problems Problem Status Onset Toe infection Acute
[2019-02-22] MEDS: PREGABALIN 150 MG CAP PO SCH ×2 (08:50→20:41)
[2019-02-22] MEDS: CARVEDILOL 25 MG TAB PO SCH ×2 (08:52→20:40)
[2019-02-22] MEDS: FLUoxetine 20 MG CAP PO SCH ×2 (08:52→20:41)
[2019-02-22] MEDS: FLUTICASONE NASAL 120 SPRAYS/16 GM MDI EACHNARE SCH (08:55)
[2019-02-22] MEDS: NYSTATIN POWDER 15 GM BTL TP SCH ×2 (08:57→20:42)
[2019-02-22] MEDS: FLUTICASONE/SALMETER 500/50MCG DISKUS IH SCH ×2 (10:09→21:33)
--- NOTE | 2019-02-22 14:41 | ASMTCMCOM ---
CM Note CM Note Notes: CM met w/ pt and introduced self. Pt is post op fempop bypass day 1. PT tried working w/ pt today but pt reported that it was too early and it had been less than 24hrs since his surgery. OT is recommending SNF. Pt reports that he was previously at [facility] before coming into the hospital. Pt would like a referral made to [facility]. Pt is ok w/ going back to [facility] if there isn't any availabilities at [facility]. CM to follow. Plan: SNF Date Signed: 02/22/2019 02:40 PM Electronically Signed By:YULI Almodovar
--- NOTE | 2019-02-22 16:05 | HOSPPROG ---
Hospitalist Progress Note Assessment/Plan: 63 yo M with peripheral neuropathy and morbid obesity presenting with MRSA osteomyelitis in setting of PVD * MRSA Osteomyelitis of toe s/p amputation -no further antibiotics as surgical cure -wound care per surgery -at risk of poor healing given next * PVD - sp RLE fem pop bypass 02/21, tobacco cessation importance stressed to patient -ok to resume xarelto 02/23 per surgery * Morbid obesity BMI 47 * Peripheral neuropathy -Lyrica * h/o arterial thrombosis -resume xarelto in am * COPD with ongoing tobacco abuse -Advair -intermittent compliance with home O2 * MORENA - CPAP intolerant * Acute on chronic diastolic CHF -s/p IV lasix * IP status, may require SNF Subjective: patient notes he has pain in his right leg especially when he attempts to walk, has not been up very much, eating ok Objective: Vital Signs Temp Pulse Resp BP Pulse Ox 36.7 C 77 18 99/52 L 93 02/22/19 11:35 02/22/19 11:35 02/22/19 11:35 02/22/19 11:35 02/22/19 11:35 Laboratory Results 02/22/19 04:27 02/22/19 04:27 02/21/19 02/22/19 02/23/19 05:59 05:59 05:59 Intake Total 450 1350 Output Total 650 1125 Balance -200 225 awake alert anicteric op clear rrr no mrg cta to ant exam obese soft nt rle with bandage in place, warm dry oriented appropriate - Time Spent With Patient Time Spent with Patient: greater than 35 minutes Time Spent with Patient: Greater than 35 minutes spent on this patients care, greater than 50% of time spent counseling, educating, and coordinating care regarding the above mentioned plan. ICD10 Worksheet Patient Problems: Problems Problem Status Onset Toe infection Acute
[2019-02-22] MEDS: MELATONIN 3 MG TAB PO SCH (20:39)
[2019-02-22] MEDS: TAMSULOSIN HCL 0.4 MG CAP PO SCH (20:39)
[2019-02-22] MEDS: ATORVASTATIN CALCIUM 20 MG TAB PO SCH (20:41)
[2019-02-23] MEDS: oxyCODONE IR 5 MG TAB PO PRN ×6 (01:18→20:03)
[2019-02-23] MEDS: LEVOTHYROXINE 50 MCG TAB PO SCH (05:26)
[2019-02-23] MEDS: FUROSEMIDE 40 MG TAB PO SCH ×2 (05:26→11:08)
[2019-02-23] MEDS ORDERED: VANCOMYCIN 1.5 GM in D5W 250 ML IV SCH (08:30)
--- NOTE | 2019-02-23 08:39 | HOSPPROG ---
Hospitalist Progress Note Assessment/Plan: 63 yo M with peripheral neuropathy and morbid obesity presenting with MRSA osteomyelitis in setting of PVD * MRSA Osteomyelitis of toe s/p amputation -no further antibiotics as surgical cure -wound care per surgery * PVD - sp RLE fem pop bypass 02/21, tobacco cessation importance stressed to patient -Xarelto * Morbid obesity BMI 47 * Peripheral neuropathy -Lyrica * h/o arterial thrombosis -resume Xarelto in am * COPD with ongoing tobacco abuse -Advair -intermittent compliance with home O2 -had a discussion w Chandrakant and the importance of stopping all smoking due to worsening his health, PVD * MORENA - CPAP intolerant * Acute on chronic diastolic CHF -s/p IV Lasix *plan: CM to look at SNF, possibly to [facility] soon, will need mak removed soon. Subjective: Chandrakant said his right leg has significant pain w standing. Objective: Vital Signs Temp Pulse Resp BP Pulse Ox 37.1 C 80 16 111/70 93 02/23/19 08:00 02/23/19 08:00 02/23/19 08:00 02/23/19 08:00 02/23/19 08:00 Laboratory Results 02/22/19 04:27 02/22/19 04:27 02/22/19 02/23/19 02/24/19 05:59 05:59 05:59 Intake Total 1350 1730 Output Total 1125 2250 Balance 225 -520 - Physical Exam Constitutional: chronically ill appearing, obese, uncomfortable Eyes: PERRL Ears, Nose, Mouth, Throat: hearing normal Cardiovascular: regular rate and rhythym, other (distant heart tones due to his body habitus) Respiratory: no respiratory distress Gastrointestinal: other (round and large) Skin: warm Neurologic: AAOx3 Psychiatric: interacting appropriately ICD10 Worksheet Patient Problems: Problems Problem Status Onset Toe infection Acute
--- NOTE | 2019-02-23 09:20 | SOAPPROG ---
SOAP Progress Note Assessment/Plan: Assessment/Plan:63yo M with multiple comorbidities POD#8 s/p amputation R 2nd toe, POD#2 s/p challenging redo below knee fem pop bypass c impra graft. R foot is warm with palpable pedal pulses. Restart Xarelto today OOB, PT/OT. No severe bending at hip or knee. Ok to sit semireclined. Pain control. Suspect he will have a good deal of R posterior knee pain. R second toe wound appears to be healing. Cultures from 02/14 grow MRSA. Start iv vanc. ABIs today to evaluate for baseline flow. Pt seen and evaluated with Dr. Miles. S: No complaints. Agrees to get OOB today. O: Alert Afebrile RRR CTAB, no increased WOB Abdomen soft, nontender RLE: + palpable pedal pulses, foot warm. Second toe amp site appears clean and dry. No surrounding erythema or induration. 02/23/19 09:16 Objective: Vital Signs Temp Pulse Resp BP Pulse Ox 37.1 C 80 16 111/70 93 02/23/19 08:00 02/23/19 08:00 02/23/19 08:00 02/23/19 08:00 02/23/19 08:00 Laboratory Results 02/22/19 04:27 02/22/19 04:27 02/22/19 02/23/19 02/24/19 05:59 05:59 05:59 Intake Total 1350 1730 Output Total 1125 2250 Balance 225 -520 ICD10 Worksheet Patient Problems: Problems Problem Status Onset Toe infection Acute
[2019-02-23] MEDS: FLUoxetine 20 MG CAP PO SCH ×2 (09:26→20:04)
[2019-02-23] MEDS: PREGABALIN 150 MG CAP PO SCH ×2 (09:27→20:04)
[2019-02-23] MEDS: CARVEDILOL 25 MG TAB PO SCH ×2 (09:27→20:04)
[2019-02-23] MEDS: FLUTICASONE/SALMETER 500/50MCG DISKUS IH SCH ×2 (10:05→20:53)
[2019-02-23] MEDS: NYSTATIN POWDER 15 GM BTL TP SCH ×2 (10:55→20:08)
[2019-02-23] MEDS: FLUTICASONE NASAL 120 SPRAYS/16 GM MDI EACHNARE SCH (11:01)
[2019-02-23] MEDS: DOXYCYCLINE HYCLATE 100 MG CAP/TAB PO SCH ×2 (12:51→20:04)
[2019-02-23] MEDS ORDERED: RIVAROXABAN 20 MG TAB PO ONE (15:30)
--- NOTE | 2019-02-23 15:59 | ASMTCMCOM ---
CM Note CM Note Notes: PT notes recommending SNF on discharge and notes sent to [facility] who has accepted the pt. Per hospitalist pt likely to dc tomorrow or Wednesday. CM to follow. D/C Plan: [facility] Date Signed: 02/23/2019 03:58 PM Electronically Signed By:Marisol Menjivar
[2019-02-23] MEDS: TAMSULOSIN HCL 0.4 MG CAP PO SCH (20:04)
[2019-02-23] MEDS: MELATONIN 3 MG TAB PO SCH (20:04)
[2019-02-23] MEDS: ATORVASTATIN CALCIUM 20 MG TAB PO SCH (20:04)
[2019-02-24] MEDS: oxyCODONE IR 5 MG TAB PO PRN ×4 (05:15→15:54)
[2019-02-24] MEDS: LEVOTHYROXINE 50 MCG TAB PO SCH (05:15)
[2019-02-24] MEDS: FUROSEMIDE 40 MG TAB PO SCH ×2 (05:15→09:26)
[2019-02-24] MEDS: RIVAROXABAN 20 MG TAB PO SCH (09:26)
[2019-02-24] MEDS: FLUoxetine 20 MG CAP PO SCH (09:26)
[2019-02-24] MEDS: DOXYCYCLINE HYCLATE 100 MG CAP/TAB PO SCH (09:27)
[2019-02-24] MEDS: FLUTICASONE NASAL 120 SPRAYS/16 GM MDI EACHNARE SCH (09:27)
[2019-02-24] MEDS: PREGABALIN 150 MG CAP PO SCH (09:27)
[2019-02-24] MEDS: CARVEDILOL 25 MG TAB PO SCH (09:27)
[2019-02-24] MEDS: NYSTATIN POWDER 15 GM BTL TP SCH (09:28)
[2019-02-24] MEDS: FLUTICASONE/SALMETER 500/50MCG DISKUS IH SCH (09:48)
--- NOTE | 2019-02-24 12:14 | HOSPPROG ---
Hospitalist Progress Note Assessment/Plan: 63 yo M with peripheral neuropathy and morbid obesity presenting with MRSA osteomyelitis in setting of PVD * MRSA Osteomyelitis of toe s/p amputation -no further antibiotics as surgical cure -wound care per surgery * PVD - sp RLE fem pop bypass 02/21, tobacco cessation importance stressed to patient -Xarelto -surgical team would like him on Doxycyline because the patient has a gortex graft * Morbid obesity BMI 47 * Peripheral neuropathy -Lyrica * h/o arterial thrombosis -resume Xarelto in am * COPD with ongoing tobacco abuse -Advair -intermittent compliance with home O2 -had a discussion stacy Stallings and the importance of stopping all smoking due to worsening his health, PVD * MORENA - CPAP intolerant * Acute on chronic diastolic CHF -s/p IV Lasix *plan: [facility] today Objective: Vital Signs Temp Pulse Resp BP Pulse Ox 36.7 C 72 14 118/73 92 02/24/19 07:26 02/24/19 09:50 02/24/19 09:50 02/24/19 09:27 02/24/19 09:50 Laboratory Results 02/22/19 04:27 02/22/19 04:27 02/23/19 02/24/19 02/25/19 05:59 05:59 05:59 Intake Total 1730 450 Output Total 2250 1320 Balance -520 -870 ICD10 Worksheet Patient Problems: Problems Problem Status Onset Toe infection Acute
--- NOTE | 2019-02-24 12:42 | SOAPPROG ---
SOAP Progress Note Assessment/Plan: Assessment/Plan:63yo M with multiple comorbidities POD#8 s/p amputation R 2nd toe, POD#3 s/p challenging redo below knee fem pop bypass c impra graft. R foot is warm with palpable pedal pulses. Xarelto started OOB, PT/OT. No severe bending at hip or knee. Ok to sit semireclined. Pain control. Suspect he will have a good deal of R posterior knee pain. R second toe wound appears to be healing. Cultures from 02/14 grow MRSA. Oral doxy started yesterday for graft protection. ABIs yesterday showed .84 on R side. Dispo: ok to go to [facility] today from surgical standpoint. S: No complaints. Agrees to get OOB today. O: Alert Afebrile RRR CTAB, no increased WOB Abdomen soft, nontender RLE: + palpable pedal pulses, foot warm. Second toe amp site appears clean and dry. No surrounding erythema or induration. 02/24/19 12:41 Objective: Vital Signs Temp Pulse Resp BP Pulse Ox 36.7 C 72 14 118/73 92 02/24/19 07:26 02/24/19 09:50 02/24/19 09:50 02/24/19 09:27 02/24/19 09:50 Laboratory Results 02/22/19 04:27 02/22/19 04:27 02/23/19 02/24/19 02/25/19 05:59 05:59 05:59 Intake Total 1730 450 Output Total 2250 1320 Balance -520 -870 ICD10 Worksheet Patient Problems: Problems Problem Status Onset Toe infection Acute
--- NOTE | 2019-02-24 13:18 | HOSPPROG ---
Hospitalist Progress Note Assessment/Plan: 63 yo M with peripheral neuropathy and morbid obesity presenting with MRSA osteomyelitis in setting of PVD * MRSA Osteomyelitis of toe s/p amputation -no further antibiotics as surgical cure -wound care per surgery * PVD - sp RLE fem pop bypass 02/21, tobacco cessation importance stressed to patient -Xarelto -surgical team would like him on Doxycycline because the patient has a gortex graft * Morbid obesity BMI 47 * Peripheral neuropathy -Lyrica * h/o arterial thrombosis -resume Xarelto in am * COPD with ongoing tobacco abuse -Advair -intermittent compliance with home O2 -had a discussion w Chandrakant and the importance of stopping all smoking due to worsening his health, PVD * MORENA - CPAP intolerant * Acute on chronic diastolic CHF -s/p IV Lasix *plan: [facility] today Subjective: Chandrakant feels ready to dc today Objective: Vital Signs Temp Pulse Resp BP Pulse Ox 36.5 C 72 16 133/79 H 94 02/24/19 12:52 02/24/19 12:52 02/24/19 12:52 02/24/19 12:52 02/24/19 12:52 Laboratory Results 02/22/19 04:27 02/22/19 04:27 02/23/19 02/24/19 02/25/19 05:59 05:59 05:59 Intake Total 1730 450 Output Total 2250 1320 Balance -520 -870 - Physical Exam Constitutional: chronically ill appearing, obese, uncomfortable Eyes: PERRL Ears, Nose, Mouth, Throat: hearing normal Respiratory: no respiratory distress Skin: warm, other (right lower ext with steri strips to the adductor side, edges well approximated, generalized swelling to r lower ext, palpable PT pulse) Musculoskeletal: generalized weakness Neurologic: AAOx3 Psychiatric: interacting appropriately ICD10 Worksheet Patient Problems: Problems Problem Status Onset Toe infection Acute
--- NOTE | 2019-02-24 13:33 | PDIAF ---
- Diagnosis Diagnosis: MRSA osteomyelitis s/p amputation to toe, PVD s/p RLE bypass Code Status: Full Code - Medication Management Walking Dragline Oiler Antibiotics: doxycyline 100 mg bid x 6 days Discharge Medications: electronically signed and located in the Home Medication List. PICC Care - Routine: N/A - Orders Services needed: Registered Nurse, Physical Therapy, Occupational Therapy Isolation Type: Contact Isolation Diet Recommendation: no restrictions on diet Diet Texture: Regular Texture Diet Additional Instructions: Do not immerse foot in water or shower as long as incisional wound dressing is in place Weight bearing as tolerated. Avoid severe bending at hip and knee. Ok to sit in chair semireclined. Ok to leave R groin and medial calf incisions open to air. Ok to get wet, but not submersed. For toe wound: change dressing every other day and as needed with gauze and kerlix. Call to make a follow up appointment with Dr. Miles in one week. Call with fever, chills or increased pain. Doxycycline for 6 more days - Labs/Radiology BMP Date: 02/27/19 CBC w/diff Date: 02/27/19 - Follow Up Care Current Providers and Referrals: Dora Newberry DO [Primary Care Provider] - As per Instructions Corey Miles MD [Medical Doctor] - follow up in 1 week
--- NOTE | 2019-02-24 14:05 | GDS ---
[f rep st] DISCHARGE SUMMARY DISCHARGE DIAGNOSES: 1. Methicillin-resistant Staphylococcus aureus osteomyelitis, status post amputation of his 2nd toe. 2. Peripheral vascular disease, status post right lower extremity femoropopliteal bypass on 02/21. 3. Morbid obesity with a body mass index of 47. 4. Peripheral neuropathy. 5. History of arterial thrombosis, on Xarelto. 6. Chronic obstructive pulmonary disease. Continue oxygen. 7. Obstructive sleep apnea, CPAP-intolerant. 8. Acute on chronic diastolic congestive heart failure, was treated with IV Lasix. CONSULTATION: 1. Jovanny Faust MD. 2. Walter Dave MD. 3. Melissa Washington MD. 4. Corey Miles MD. HISTORY OF PRESENT ILLNESS: Briefly, the patient is a 63-year-old gentleman with a past medical history significant for COPD, CHF, peripheral arterial disease, who presented to the emergency room with right foot and toe pain. He had an x-ray which was negative for any acute erosion or fracture. He was seen and evaluated by Dr. Washington on February 15. At that time, he had an amputation of his right 2nd toe, and a wound VAC was placed. He continued to improve, but there was concern of poor blood flow to his right lower extremity. Subsequently , on 02/17/2019, he had a CT angio of the abdomen with bilateral runoff. Subsequently, he was seen and evaluated by Dr. Miles, and had surgery on February 21. He had a [id number] femoropopliteal bypass with graft and femoral artery endarterectomy. Overall, he tolerated the procedure well. The plan is for him to go to [facility] for strengthening and further followup with Dr. Miles in the outpatient setting. HOSPITAL COURSE: 1. MRSA osteomyelitis, status post right 2nd toe amputation, doing well with this. 2. Peripheral vascular disease. He is status post right lower extremity fem- pop bypass on 02/21. Tobacco cessation has been stressed to the patient multiple times. The surgical team would like him on doxycycline because he has a [place] graft in place for a few more days. 3. Morbid obesity. This is impacting the above. He has a BMI of 47. 4. Peripheral neuropathy, on Lyrica. 5. History of arterial thrombosis. He is on Xarelto. 6. COPD. He is on Advair. He realizes he cannot smoke because it is worsening his lungs, as well as his peripheral vascular disease. 7. Obstructive sleep apnea. Uses oxygen. He is intolerant of CPAP. 8. Acute on chronic diastolic heart failure. Resumed his oral Lasix. During his stay, he was treated with IV Lasix. DISCHARGE CONDITION: Stable. Blood pressure is 133/79, heart rate is 72, respiratory rate is 16, O2 sats on 3 L are 94%, temperature is 36.5 Celsius. MEDICATIONS AT DISCHARGE: Please see the EMR. DISCHARGE INSTRUCTIONS: 1. Follow up with Dr. Miles. 2. If he develops any fever or chills, to return to the ER. Greater than 30 minutes discharging and coordinating the patient's care. /[id number]/MODL MTDD
--- NOTE | 2019-02-24 14:09 | ASMTDCNOTE ---
Case Management Discharge Discharge Order Complete? Answers: Yes Patient to Obtain Answers: Other Notes: [facility] Transportation Arranged Answers: Other Notes: Wheelchair van from [facility] Transport will Pick (Date 02/24/2019 12:00 AM & Time) Faxed Final Orders Answers: Yes Agency/Facility Transfer Answers: Yes Report Printed & Faxed to Receiving Agency Family Notified Answers: Yes Notes: by patient Discharge Comments Notes: Pt to discharge to [facility]. RN given number for RN report. Pt notified family. No further CM needs noted at this time. Date Signed: 02/24/2019 02:08 PM Electronically Signed By:Marisol Menjivar
--- NOTE | 2019-02-24 14:14 | ASDISCHSUM ---
Discharge Information Plan Status:SNF Medically Cleared to Leave:02/24/2019 Discharge Date:02/24/2019 CM D/C Disposition:Detention Facility ADT D/C Disposition:Home Health Service Projected Discharge Date:02/24/2019 11:00 AM Transportation at D/C:Wheelchair Van Discharge Delay Reason: Follow-Up Date:02/24/2019 11:00 AM Discharge Slot: Final Diagnosis:cellulitis Placement Information Referral Type:*Home Health Care Services Referral ID:[id number] Provider Name: Address 1: Phone Number: Address 2: Fax Number: City: Selection Factors: State: Referral Type:*Senior Care/SNF Referral ID:[id number] Provider Name:[facility] Address 1:[address] Address 2: City:[place] Selection Factors: State:[place] Patient Contact Information Contact Name:SUSIE Relationship: Address:[address] Work Phone: City:[place] Alternate Phone: State/Zip Code:[place] [address] Email: Financial Information Financial Class:Medicare Advantage Plans Primary Plan Desc:[facility] MEDICARE COMPLETE Primary Plan Number:[id number] Secondary Plan Desc: Secondary Plan Number: Assessment Information LACE LACE Length of stay for Answers: 1 day current admission Acuity / Level of Answers: Yes Care: Did the patient have an inpatient admission? Comorbidities - select Answers: Chronic pulmonary disease all that apply Congestive heart failure Other Notes: Hx of MRSA; Peripheral neuropathy # of Emergency department Answers: 1-2 visits in the last 6 months Score: 10 Date Signed: 02/17/2019 10:34 AM Electronically Signed By:Ute Park [facility] CM Progress Note CM Note CM Note Notes: Pt admitted to hospital for toe infection, he has a hx of toe amputation. Pt was taken to OR for another amputation and had a wound vac placed. Pt and state he has a home health RN through [facility], CM called and they say he hasn't been seen since May. CM left a vm, KENNETH w/john to follow. No therapies ordered DC Plan:TBD Date Signed: 02/15/2019 02:58 PM Electronically Signed By:Maryam Marin RN [facility] CM Progress Note CM Note CM Note Notes: Pt being discharged to home today with [facility] RN services. Has disposable wound vac in place. Per Stephanie Sandoval PA-C with Dr. Washington, seniaay to go home with it on. He will follow up with Dr. Washington in her office. Pt's will be driving him home. LM for her to advise that he is being discharged today. Date Signed: 02/17/2019 10:33 AM Electronically Signed By:Ute Park [facility] CM Progress Note CM Note CM Note Notes: UPDATE TO PREVIOUS CM NOTE: Dr. Washington does not want pt to go home today. She says he has not gotten out of bed once since being here and is not an active participant in his wound care. CM notified . Also notified [facility] that he is not being discharged today afterall. CM will continue to follow. CM D/C plan: Eventually home with Date Signed: 02/17/2019 12:38 PM Electronically Signed By:Ute Park [facility] CM Progress Note CM Note CM Note Notes: CM reviewed chart. Per Dr. Miles, he will discuss possibility of doing femoral-popliteal bypass to try to salvage pt's limb. Pt is on [facility]'s list for homecare when he discharges, if still appropriate at that time. CM will continue to follow. CM D/C plan: TBD Date Signed: 02/18/2019 02:32 PM Electronically Signed By:Ute Park [facility] CM Progress Note CM Note CM Note Notes: Patient to OR tomorrow for a fem-pop bypass. PT/OT will follow post-op and make d/c recommendations. Case Management will follow. Date Signed: 02/20/2019 04:17 PM Electronically Signed By:Aniyah Talley RN [facility] CM Progress Note CM Note CM Note Notes: Pt went for a fempop bypass today. CM spoke to Modesta kumar/ [facility] . Pt is current w/ [facility]. CM sent updates to them on allscripts. Therapies have cleared him at this time but may change after surgery. CM to follow. Date Signed: 02/21/2019 04:49 PM Electronically Signed By:YULI Almodovar [facility] CM Progress Note CM Note CM Note Notes: CM met w/ pt and introduced self. Pt is post op fempop bypass day 1. PT tried working w/ pt today but pt reported that it was too early and it had been less than 24hrs since his surgery. OT is recommending SNF. Pt reports that he was previously at [facility] before coming into the hospital. Pt would like a referral made to [facility]. Pt is ok w/ going back to [facility] if there isn't any availabilities at [facility]. CM to follow. Plan: [facility] Date Signed: 02/22/2019 02:40 PM Electronically Signed By:YULI Almodovar [facility] CM Progress Note CM Note CM Note Notes: PT notes recommending SNF on discharge and notes sent to [facility] who has accepted the pt. Per hospitalist pt likely to dc tomorrow or Wednesday. CM to follow. D/C Plan: [facility] Date Signed: 02/23/2019 03:58 PM Electronically Signed By:Marisol Menjivar Case Management Discharge Plan Note Case Management Discharge Discharge Order Complete? Answers: Yes Patient to Obtain Answers: Other Notes: [facility] Transportation Arranged Answers: Other Notes: Wheelchair van from [facility] Transport will Pick (Date 02/24/2019 12:00 AM & Time) Faxed Final Orders Answers: Yes Agency/Facility Transfer Answers: Yes Report Printed & Faxed to Receiving Agency Family Notified Answers: Yes Notes: by patient Discharge Comments Notes: Pt to discharge to [facility]. RN given number for RN report. Pt notified family. No further CM needs noted at this time. Date Signed: 02/24/2019 02:08 PM Electronically Signed By:Marisol Menjivar Intervention Information Intervention Type:*IM-Signed Date of Service:02/17/2019 10:01 AM Patient Type:Inpatient Staff Member:Nhi Johnston Hours: Discipline: Severity: Comment: Intervention Type:*IM-Signed Date of Service:02/24/2019 10:52 AM Patient Type:Inpatient Staff Member:Nhi Johnston Hours: Discipline: Severity: Comment:
[2019-02-24 15:13] VITALS: BP 125/68
--- NOTE | 2019-03-08 14:19 | GCON ---
[f rep st] CONSULTATION DATE OF CONSULTATION: 02/19/2019 HISTORY OF PRESENT ILLNESS: The patient is a 63-year-old male in the hospital with infection in the toe amputation site in his right leg. The CTA has demonstrated an occluded right SFA, but he does have an open distal popliteal with runoff. PAST MEDICAL HISTORY: Includes multiple procedures on his right leg including possible stent graft. He also has sleep apnea with morbid obesity and COPD, history of congestive heart failure. 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 FAMILY HISTORY: Noncontributory. SOCIAL HISTORY: Reveals he is . Does continue to smoke but in small amounts. REVIEW OF SYSTEMS: Negative on a full 10-point review. ALLERGIES: Penicillin, neomycin, polymyxin, bacitracin. PRESENT MEDICATIONS: Include Prozac, Synthroid, Flomax, Lasix, and Lipitor as well as ProAir, [place], Advair, Lyrica, Xarelto, ropinirole, and carvedilol. PHYSICAL EXAMINATION: GENERAL: Reveals an overweight 63-year-old male in no acute distress. He is afebrile. HEAD and NECK: Revealed no icterus or adenopathy or oral lesions. Carotids are symmetric without bruits. Neck is supple with full range of motion. No thyromegaly. CHEST: Clear and symmetric. COR: Regular rhythm without murmurs. ABDOMEN: Soft and nontender. EXTREMITIES: Reveal absent pedal pulses on the right with a poorly healing 3rd toe amputation on the right. Does have a palpable femoral pulse on the right. Also has some chronic stasis changes. NEUROLOGIC: Physiologic and symmetric. PSYCH: Reveals him to be alert, oriented, and cooperative. IMPRESSION: Nonhealing amputation site secondary to ischemia with superficial femoral artery occlusion. RECOMMENDATIONS: Would recommend revascularization if the patient is a candidate from his other health issues. Risks and options have been fully discussed. Otherwise, he is probably facing a BK amputation. We have discussed these options, and he is amenable to proceeding with a femoral- popliteal bypass. /[id number]/MODL MTDD
--- NOTE | 2019-03-08 21:31 | GOP ---
[f rep st] OPERATIVE REPORT DATE OF OPERATION: 02/21/2019 SURGEON: Corey Miles MD COMMUNICATIONS REPRESENTATIVE: Jyoti Sanchez PA-C. ANESTHESIOLOGIST: Pankaj Patten MD. PREOPERATIVE DIAGNOSIS: Right leg ischemia with nonhealing toe amputation site. POSTOPERATIVE DIAGNOSIS: Right leg ischemia with nonhealing toe amputation site. PROCEDURE PERFORMED: Below-knee femoral-popliteal bypass with Impra graft and femoral artery endarterectomy. FINDINGS: Patient was found to have a large amount of scarring from previous fem-pop making the surgery quite difficult. He had a palpable dorsalis pedis pulse post bypass. DESCRIPTION OF PROCEDURE: The patient was taken to the operating room where he received satisfactory general endotracheal anesthesia by Dr. Patten. He was placed in the supine position and prepped and draped in the usual sterile fashion. Incision was made at the infrapopliteal space, and dissection was extended down into the popliteal space. Scar tissue was encountered, and this was dissected free. The popliteal artery was eventually dissected free, but this required tedious dissection taking down part of the soleus muscle off the tibia to find the very distal portion of the popliteal artery. Dissection extended back cephalad to expose an adequate section of the popliteal artery from this encasing scar tissue. The popliteal artery at this point was soft. It was dissected free and controlled with vessel loops. A second incision was made in the femoral area through the previous old scar and dissection extended down to the common femoral artery which was dissected free up from underneath the inguinal ligament. The superficial femoral and profunda femoris arteries were dissected free and controlled with vessel loops. After adequate exposure was achieved, the patient was systemically heparinized. An end-to-side anastomosis was made to the popliteal artery using a Hemashield 7 suture and an Impra 8-5 reinforced graft. The distal anastomosis was completed and was tested with saline injection and appeared to be hemostatic. The graft was passed through the popliteal space and subsartorially up to the femoral incision. An end-to-side anastomosis was made to the common femoral artery. This first required an endarterectomy of the common femoral artery to find a noncalcified place for suture. This was done without difficulty after incision into the common femoral artery and then dissecting away a large calcified plaque which allowed us to be able to suture to the artery. This was done with a Hemashield 6 suture. All vessels were flushed prior to completion of the suture line, and flow was first established through the [place] vessels and then down through the bypass graft which then resulted in a palpable pedal pulse. Hemostasis was assured. The wounds were irrigated. Heparin was reversed with protamine. The wounds were sprayed with some topical thrombin and then closed in layers using 2-0 Vicryl for the fascia, 3-0 Vicryl for the subcu, and skin vivienne for the skin. The wounds were infiltrated with 0.5% Marcaine. He tolerated the procedure well. He was taken to the recovery room in good condition. There were no complications. /[id number]/MODL MTDD
== END 2019-02-24 18:37 | DRG 503 ==
LOC: F3E 22:09 → OBSVTOIN 02-16 15:52 → F3E 02-21 12:40
PROVIDERS: ADMIT Family Medicine; ATTEND Family Medicine
PROC: 0Y6R0Z0 Detachment at Right 2nd Toe, Complete, Open Approach (ICD-10-PCS; principal; 2019-02-15 09:30)
PROC: 041K0JL Bypass Right Femoral Artery to Popliteal Artery with Synthetic Substitute, Open Approach (ICD-10-PCS; 2019-02-21)
DX: M86.171 Other acute osteomyelitis, right ankle and foot (principal); I50.33 Acute on chronic diastolic (congestive) heart failure; Z68.42 Body mass index [BMI] 45.0-49.9, adult; B95.62 Methicillin resistant Staphylococcus aureus infection as the cause of diseases classified elsewhere; E66.01 Morbid (severe) obesity due to excess calories; G62.9 Polyneuropathy, unspecified; I10 Essential (primary) hypertension; J44.9 Chronic obstructive pulmonary disease, unspecified; G47.33 Obstructive sleep apnea (adult) (pediatric); G25.81 Restless legs syndrome; Z79.01 Long term (current) use of anticoagulants; Z99.81 Dependence on supplemental oxygen; Z72.0 Tobacco use; Z86.718 Personal history of other venous thrombosis and embolism; Z89.421 Acquired absence of other right toe(s)
CPT/HCPCS: 97116-GP; 97161-GP; 97164-GP; 97165-GO; 97168-GO; 97530-GO; 97535-GO; C1757; C1768; G0378; J1170; J1644; J1940; J2250; J2270; J2405; J2704; J2720; J2765; J3010; J3370; J7613; Q9967

== ENCOUNTER 2019-03-05 11:24 | Emergency (ER) | payer OTHER ==
--- NOTE | 2019-03-05 13:39 | EDPHY ---
H & P Stated Complaint: R toe removed 2 weeks ago "not healing well" Time Seen by Provider: 03/05/19 13:25 HPI/ROS: CHIEF COMPLAINT: Possible foot infection HISTORY OF PRESENT ILLNESS: 63-year-old male status post right 2nd and 3rd toe amputation 2 weeks ago presents with a concern about foot infection. He was seen by a home healthcare nurse today and she was concerned about possible infection at the amputation site. The patient and his think that the wounds are healing well (without infection) and there has been no recent change. He saw his primary care physician yesterday who also observed the wounds. No pain or drainage from the wounds. He has increased bilateral leg swelling over the past few days. He just left rehab 3 days ago. Since being at home, he has decreased his usual Lasix (120mg) to 80 mg a day and has been eating more salt than usual. No fever and no shortness of breath. REVIEW OF SYSTEMS: complete 10 point ROS reviewed and is negative except for the noted elements in the HPI Source: Patient, Family - Medical/Surgical History Hx Asthma: Yes Hx Chronic Respiratory Disease: Yes Hx Diabetes: No Hx Cardiac Disease: No Hx Renal Disease: No Hx Cirrhosis: No Hx Alcoholism: No Hx HIV/AIDS: No Hx Splenectomy or Spleen Trauma: No Other PMH: obesity, htn, dvt, copd, asthma, spinal stenosis. Pedal edema, right greater than left. Vascular bypass bilateral lower extremity - Social History Smoking Status: Former smoker Alcohol Use: Sober Drug Use: None - Physical Exam Exam: General Appearance: Alert, pleasant Eyes: Pupils equal and round, no conjunctival pallor ENT, Mouth: Mucous membranes moist Neck: Normal inspection Respiratory: Normal respiratory rate Neurological: A&O, nonfocal exam Skin: Warm and dry Extremities: rt foot: surgical site is clean dry and intact, normal-appearing postop wound, no erythema, warmth or tenderness; bilateral calf swelling, right greater than left Psychiatric: Mood and affect normal Constitutional: Initial Vital Signs Temperature (C) 37.3 C 03/05/19 11:25 Heart Rate 88 03/05/19 11:25 Respiratory Rate 16 03/05/19 11:25 O2 Sat (%) 87 L 03/05/19 11:25 O2 Delivery Mode Room Air Allergies/Adverse Reactions: bacitracin [From Triple Antibiotic] Allergy (Verified 02/14/19 18:11) neomycin [From Triple Antibiotic] Allergy (Verified 02/14/19 18:11) Penicillins Allergy (Verified 02/14/19 18:11) polymyxin B [From Triple Antibiotic] Allergy (Verified 02/14/19 18:11) sulfamethoxazole [From Bactrim] Allergy (Verified 02/14/19 21:20) trimethoprim [From Bactrim] Allergy (Verified 02/14/19 21:20) Home Medications: Medication Instructions Recorded Albuterol Sulfate [Proair Hfa] 1 - 2 puffs IH Q4-6PRN PRN 02/14/19 Atorvastatin Calcium [Lipitor 20 20 mg PO HS 02/14/19 mg (*)] Carvedilol 12.5 mg PO BID 02/14/19 FLUoxetine HCL [Fluoxetine HCl] 40 mg PO BID 02/14/19 Fluticasone/Salmeter 500/50Mcg 1 puffs IH BID 02/14/19 [Advair 500/50 (*)] Furosemide [Lasix 40 MG (*)] 40 mg PO DAILY@11 02/14/19 Furosemide [Lasix 40 MG (*)] 80 mg PO DAILY@0530 02/14/19 Levothyroxine [Synthroid 50 mcg 50 mcg PO DAILY06 02/14/19 (*)] Pregabalin [Lyrica 150mg (*)] 150 mg PO BID 02/14/19 Rivaroxaban [Xarelto] 20 mg PO DAILY 02/14/19 Tamsulosin HCl [Flomax 0.4 MG (*)] 0.4 mg PO HS 02/14/19 rOPINIRole HCL [Ropinirole HCl] 3 mg PO HS 02/14/19 Acetaminophen [Tylenol ES 500 mg 1,000 mg PO Q8HRS tab 02/17/19 (*)] Nystatin Powder [Mycostatin Powder] 1 manny TP BID #20 powder 02/17/19 oxyCODONE IR [Oxycodone Ir (*)] 5 - 10 mg PO Q4HRS PRN #30 tab 02/17/19 Acetaminophen [Tylenol ES 500 mg 1,000 mg PO Q8HRS PRN tab 02/24/19 (*)] Doxycycline Hyclate [Vibramycin 100 mg PO BID #12 capsule 02/24/19 100 MG (*)] Fluticasone Nasal [Flonase Nasal 2 sprays [place] DAILY mdi 02/24/19 [place]] Medical Decision Making ED Course/Re-evaluation: This patient presents with concern about possible postoperative wound infection. On my evaluation, there is no evidence of infection and instead icy a well-healing wound, without erythema, warmth or tenderness. He does have increased leg swelling, which is most likely secondary to increased salt intake and decreased use of Lasix. I encouraged him to resume his usual dosing of Lasix and moderate his salt intake. I considered the possibility of DVT, though feel that DVT is much less likely than dietary/medication related bilateral swelling. For this reason, BLE sono not obtained; pt concurs with this rationale. Differential Diagnosis: Differential diagnosis includes though is not limited to wound infection, osteomyelitis, abscess, DVT Departure - Departure Disposition: Home, Routine, Self-Care Clinical Impression: Pedal edema Condition: Good Instructions: Leg Edema (ED) Additional Instructions: Resume your normal dosage of Lasix at 120 mg daily. Decrease your salt intake. Keep your legs elevated whenever possible. Referrals: Dora Newberry DO [Primary Care Provider] - As per Instructions Corey Miles MD [Medical Doctor] - As per Instructions (Call to make an appointment. )
[2019-03-05 14:01] VITALS: BP 125/81
== END 2019-03-05 14:00 | disposition home or self-care (01) ==
DX: R60.9 Edema, unspecified (principal); Z98.890 Other specified postprocedural states; Z89.421 Acquired absence of other right toe(s)